=== PATIENT | male | born 1990 | race Caucasian/White ===

== ENCOUNTER 2017-11-05 10:57 | Emergency (ER) | payer MEDICAID, OTHER ==
[~2017-11-05] VITALS: Ht 170.2 cm; Wt 60.0 kg
[~2017-11-05 10:57] MED LIST: ALPR-623 PO; DEXT30TA10 PO
[2017-11-05 10:59] VITALS: BP 119/60
== END 2017-11-05 13:02 | disposition home or self-care (01) ==
LOC: ER 10:58
DX: R07.9 Chest pain, unspecified (principal); R20.2 Paresthesia of skin; F17.200 Nicotine dependence, unspecified, uncomplicated; Z91.010 Allergy to peanuts; Z79.899 Other long term (current) drug therapy
CPT/HCPCS: 93005; 99283

== ENCOUNTER 2020-11-21 17:22 | Emergency (ER) | payer MEDICAID ==
[~2020-11-21] VITALS: Ht 170.2 cm; Wt 62.2 kg
[~2020-11-21 17:22] MED LIST changes: -AMPH30CA3 PO; -AMPH30TA3 PO; -DEXT30CA6 PO; -ESCI5TAB PO; -LORA-269 PO; -ZOLP5TAB2 PO
--- NOTE | 2020-11-21 19:25 | NUR ---
PT TRANSFERRED TO ER HOLD AT THIS TIME. PT IS COMFORTABLE IN BED AFTER TRANSFERRING INTO SCRUBS. PT IS TALKATIVE AND COMPLIANT AT THIS TIME. PT STATES THEY ARE VERY STRESSED AND ANXIOUS LATELY, FEELING LOST, AND IS SEEKING HELP AT THIS TIME TO HELP "FIGURE THINGS OUT BECAUSE NOTHING MAKES SENSE." PT BELONGINGS SHEET SIGNED AND REVIEWED WITH PT AND CIVIL DRAFTING TECHNICIAN ZAIDA AT THIS TIME.
[2020-11-21 19:44] LABS: BASOPHILS # (AUTO) 0.1 X10'3 (0-0.2); BASOPHILS % (AUTO) 0.6 % (0-1); EOSINOPHILS # (AUTO) 0.1 X10'3 (0-0.9); EOSINOPHILS % (AUTO) 1.7 % (0-6); HEMATOCRIT 41.6 % (42.0-52.0); HEMOGLOBIN 14.4 g/dl (14.0-17.9); LYMPHOCYTES # (AUTO) 2.1 X10'3 (1.1-4.8); LYMPHOCYTES % (AUTO) 24.5 % (21-51); MEAN CORPUSCULAR HEMOGLOBIN 29.5 PG (27.0-31.0); MEAN CORPUSCULAR HGB CONC 34.5 g/dL (33.0-36.5); MEAN CORPUSCULAR VOLUME 85.4 FL (78-98); MEAN PLATELET VOLUME 6.7 FL (7.4-10.4); MONOCYTES # (AUTO) 0.9 X10'3 (0-0.9); MONOCYTES % (AUTO) 10.2 % (2-12); NEUTROPHILS # (AUTO) 5.4 X10'3 (1.8-7.7); PLATELET COUNT 292 X10'3 (140-440); RED BLOOD COUNT 4.87 X10'6 (4.70-6.10); WHITE BLOOD COUNT 8.6 X10'3 (4.5-11.0)
[2020-11-21 20:01] LABS: ALANINE AMINOTRANSFERASE 23 U/L (12-78); ALBUMIN 4.2 G/DL (3.4-5.0); ALBUMIN/GLOBULIN RATIO 1.2 (1.1-1.5); ALKALINE PHOSPHATASE 104 IU/L (46-116); ANION GAP 9 (8-16); ASPARTATE AMINO TRANSFERASE 31 U/L (10-37); BILIRUBIN,TOTAL 0.6 MG/DL (0.1-1.0); BLOOD UREA NITROGEN 21 MG/DL (7-18); BUN/CREATININE RATIO 23.9 (5.4-32.0); CALCIUM 8.5 MG/DL (8.5-10.1); CHLORIDE 101 MMOL/L (99-107); CREATININE 0.88 MG/DL (0.60-1.10); GLUCOSE 92 MG/DL (70-104); POTASSIUM 3.8 MMOL/L (3.5-5.1); SODIUM 138 MMOL/L (135-145); TOTAL CARBON DIOXIDE 28.4 MMOL/L (24-32); TOTAL PROTEIN 7.7 G/DL (6.4-8.2); eGFR > 90 ML/MIN
[2020-11-21 20:01] LABS: CLARITY,URINE CLEAR (Clear); COLOR,URINE YELLOW (Yellow); GLUCOSE, URINE NEGATIVE (Neg); KETONES,URINE 40 mg/dl (Neg); LEUKOCYTE ESTERASE ,URINE NEGATIVE (Neg); NITRITES, URINE NEGATIVE (Neg); OCCULT BLOOD,URINE TRACE-INTACT (Neg); PH,URINE 5.5 (4.8-8.0); PROTEIN,URINE NEGATIVE (Neg); UROBILINOGEN,URINE 0.2 E.U/dL (0.2-1.0)
[2020-11-21 20:04] LABS: UA COLLECTION TYPE CLN CATCH MIDSTREAM
[2020-11-21 20:07] LABS: URINE AMPHETAMINE SCREEN POSITIVE (Neg); URINE BARBITUATE SCREEN NEGATIVE (Neg); URINE BENZODIAZEPINES SCREEN NEGATIVE (Neg); URINE CANNABINOID SCREEN POSITIVE (Neg); URINE COCAINE SCREEN NEGATIVE (Neg); URINE METHADONE SCREEN NEGATIVE (Neg); URINE OPIATE SCREEN NEGATIVE (Neg); URINE PHENCYCLIDINE SCREEN NEGATIVE (Neg)
[2020-11-21 20:09] LABS: CAL OXALATE CRYSTALS 1+ /HPF (NEGATIVE)
[2020-11-21 20:10] LABS: BACTERIA,URINE NONE SEEN /HPF (Neg); MUCUS STRANDS MANY /LPF (Neg); RBC,URINE 0-2 /HPF (0-2); SQUAMOUS EPITHELIAL CELL,UR NONE SEEN /LPF (FEW); WBC,URINE 0-4 /HPF (0-4)
[2020-11-21 20:12] LABS: ETHANOL < 0.010 GM/DL (0.0-0.010)
--- NOTE | 2020-11-21 20:50 | NUR ---
PT VERY TALKATIVE WITH STAFF AT THIS TIME. PT CALM AND COOPERATIVE WITH STAFF.
--- NOTE | 2020-11-21 21:53 | NUR ---
PT CONTINUES TO BE VERY TALKATIVE AT THIS TIME TO STAFF, IS CALM, ALERT AND ORIENTED.
[2020-11-21] MEDS ORDERED: AMPH30CA3 PO (22:33)
[2020-11-21] MEDS ORDERED: ESCI5TAB PO (22:33)
[2020-11-21] MEDS ORDERED: ZOLP5TAB2 PO (22:33)
[2020-11-21] MEDS ORDERED: LORA-269 PO (22:33)
[2020-11-21] MEDS ORDERED: DEXT30CA6 PO (22:33)
[2020-11-21] MEDS ORDERED: nicotine 21mg patch - 24 hr TD ONE (22:40)
[2020-11-21] MEDS ORDERED: zolpidem 5mg tablet PO PRN (23:05)
--- NOTE | 2020-11-22 00:05 | NUR ---
PT RESTING IN BED COMFORTABLY AT THIS TIME WITH BED LOCKED IN LOWEST POSITION.
--- NOTE | 2020-11-22 01:05 | NUR ---
PACKET SENT OVER TO [facility] FOR PT EVAL. PT SLEEPING COMFORTABLY IN BED AT THIS TIME.
--- NOTE | 2020-11-22 01:31 | NUR ---
PT CONTINUES TO SLEEP COMFORTABLY IN BED AT THIS TIME.
--- NOTE | 2020-11-22 04:07 | NUR ---
PT RESTING IN BED AFTER USING RESTROOM. PT STATES HE IS IN NO DISTRESS AND IS COMFORTABLE.
--- NOTE | 2020-11-22 05:16 | NUR ---
PT AWOKE AND SPOKE TO RN AND COLLEGE PRESIDENT AT THIS TIME REGARDING BREAKFAST. PT IS CALM AND IN NO DISTRESS THIS MORNING GOING BACK TO BED AT THIS TIME.
--- NOTE | 2020-11-22 05:50 | NUR ---
PT VERY TALKATIVE THIS MORNING WHILE PACING AROUND AND SPEAKING TO NURSING STAFF.
--- NOTE | 2020-11-22 07:17 | NUR ---
PT TOOK NICOTINE PATCH OFF AND REPORTS "IT'S NOT DOING ANYTHING FOR ME". PATCH DISPOSED OF APPROPRIATELY.
--- NOTE | 2020-11-22 07:25 | NUR ---
PACKET FAXED TO [facility]
[2020-11-22] MEDS ORDERED: [UNRECOGNIZED DRUG - OTHER] PO SCH (08:00)
[2020-11-22] MEDS ORDERED: DEXTROAMPHETAMINE PO SCH ×2 (08:00)
[2020-11-22] MEDS ORDERED: AMPHETAMINE PO SCH ×2 (08:00)
[2020-11-22] MEDS ORDERED: AMPHET PO SCH (08:00)
[2020-11-22] MEDS ORDERED: AMPHET ASP PO SCH (08:00)
[2020-11-22] MEDS ORDERED: ESCITALOPRAM OXALATE 5 MG TABLET PO SCH (08:00)
[2020-11-22] MEDS ORDERED: D AMPHET PO SCH (08:00)
[2020-11-22] MEDS ORDERED: LORazepam 1 MG tablet PO SCH (08:00)
[2020-11-22] MEDS ORDERED: AMPH30TA3 PO (08:15)
--- NOTE | 2020-11-22 08:30 | NUR ---
PT DOES NOT HAVE ROUTINE MEDS AND UNABLE TO HAVE FAMILY/FRIENDS ASSIST TO OBTAIN MEDS. PT ROUTINELY TAKES ADDERAL ER 30MG Q AM AND PHARMACY HERE DOES NOT STOCK. SPOKE WITH DR. MIRAMONTES AND RECEIVED VO TO REPLACE ORDER WITH ADDERAL 15MG PO BID WITH TIMES AT 0800 AND 1500
[2020-11-22] MEDS ORDERED: dextroamphetamine/amphetamine 10mg tablet PO SCH (08:45)
[2020-11-22] MEDS ORDERED: dextroamphetamine/amphetamine 5mg tablet PO SCH (08:49)
--- NOTE | 2020-11-22 09:11 | NUR ---
[facility] LIQUID LOADER AT BEDSIDE SPEAKING WITH PT
[2020-11-22] MEDS: dextroamphetamine/amphetamine 5mg tablet PO SCH ×2 (09:37→14:53)
--- NOTE | 2020-11-22 09:47 | NUR ---
[facility] SPOT CLEANER PLACED PT ON [id number]
--- NOTE | 2020-11-22 11:15 | NUR ---
Pt requesting PRN for nicotine craving but asking for something other than patch. Request discussed with Dr. Valverde, receive VO for prn nicotine lozenges
[2020-11-22] MEDS: NICOTINE POLACRILEX 2 MG LOZENGE BC PRN ×2 (12:17→16:37)
--- NOTE | 2020-11-22 12:55 | NUR ---
CHRISTA FROM [facility] CALLED AND WAS GIVEN REPORT ON PT.
--- NOTE | 2020-11-22 15:40 | NUR ---
Received call from [facility] office that pt has been accepted at [facility] to arrive around 1845 tonight.
--- NOTE | 2020-11-22 16:40 | NUR ---
PATIENT WANTS FACUNDO GOYAL TO BE ALLOWED TO VISIT [phone]
[2020-11-22 19:01] VITALS: BP 130/83
== END 2020-11-22 19:04 ==
LOC: ER 17:23
DX: F99 Mental disorder, not otherwise specified (principal); Z20.822 Contact with and (suspected) exposure to COVID-19; F32.9 Major depressive disorder, single episode, unspecified; F41.9 Anxiety disorder, unspecified; Z72.89 Other problems related to lifestyle; Z91.010 Allergy to peanuts; Z79.899 Other long term (current) drug therapy
CPT/HCPCS: 36415; 80053; 80305; 80320; 81001; 84443; 85025; 87426; 99285

== ENCOUNTER → 2020-11-21 | Emergency (ER) | payer MEDICAID ==
[~2020-11-21] MED LIST changes: +AMPH30CA3 PO; +AMPH30TA3 PO; +DEXT30CA6 PO; +ESCI5TAB PO; +LORA-269 PO; +ZOLP5TAB2 PO
== END | disposition left against medical advice (07) ==
LOC: ER 13:39
DX: Z00.8 Encounter for other general examination (principal); Z53.21 Procedure and treatment not carried out due to patient leaving prior to being seen by health care provider

== ENCOUNTER 2021-01-15 21:18 | Emergency (ER) | payer MEDICAID ==
[~2021-01-15] VITALS: Ht 170.2 cm; Wt 65.3 kg
[~2021-01-15 21:18] MED LIST changes: -ALPR-623 PO; +AMPH30TA3 PO; +DEXT30CA6 PO; -DEXT30TA10 PO; +ESCI5TAB PO; +LORA-269 PO; +ZOLP5TAB2 PO
[2021-01-15 22:10] VITALS: BP 129/93
[2021-01-15] MEDS ORDERED: LORazepam 2 mg/ml vial IV ONE (22:55)
[2021-01-15] MEDS ORDERED: ESCITALOPRAM OXALATE 5 MG TABLET PO ONE (22:55)
[2021-01-15] MEDS ORDERED: TETanus/Pertussis (Acell)/Diphther VAC/PF (Tdap-Adult) 0.5ml syringe IMVAC ONE (22:55)
[2021-01-15] MEDS ORDERED: LORazepam 1 MG tablet PO ONE (23:00)
[2021-01-15] MEDS ORDERED: dextroamphetamine/amphetamine 5mg tablet PO ONE (23:00)
--- NOTE | 2021-01-15 23:18 | NUR ---
PA placed 4 james into his cuellar.
== END 2021-01-15 23:19 | disposition home or self-care (01) ==
LOC: ER 21:19
DX: S81.811A Laceration without foreign body, right lower leg, initial encounter (principal); F41.9 Anxiety disorder, unspecified; R45.1 Restlessness and agitation; F41.0 Panic disorder [episodic paroxysmal anxiety]; Z20.3 Contact with and (suspected) exposure to rabies; Z72.89 Other problems related to lifestyle; Z91.010 Allergy to peanuts; Z79.899 Other long term (current) drug therapy; X58.XXXA Exposure to other specified factors, initial encounter; Y93.89 Activity, other specified; Y92.89 Other specified places as the place of occurrence of the external cause; Y99.8 Other external cause status
CPT/HCPCS: 12001; 90471; 90715; 99284

== ENCOUNTER 2021-05-19 19:43 | Emergency (ER) | payer MEDICAID ==
[~2021-05-19] VITALS: Ht 170.2 cm; Wt 65.9 kg
[2021-05-19 19:57] VITALS: BP 128/91
[2021-05-19 20:20] LABS: BASOPHILS # (AUTO) 0.1 X10'3 (0-0.2); EOSINOPHILS # (AUTO) 0.1 X10'3 (0-0.9); EOSINOPHILS % (AUTO) 1.5 % (0-6); HEMATOCRIT 39.6 % (42.0-52.0); HEMOGLOBIN 13.8 g/dl (14.0-17.9); LYMPHOCYTES # (AUTO) 1.9 X10'3 (1.1-4.8); LYMPHOCYTES % (AUTO) 33.1 % (21-51); MEAN CORPUSCULAR HEMOGLOBIN 30.5 PG (27.0-31.0); MEAN CORPUSCULAR HGB CONC 34.8 g/dL (33.0-36.5); MEAN CORPUSCULAR VOLUME 87.6 FL (78-98); MEAN PLATELET VOLUME 6.4 FL (7.4-10.4); MONOCYTES # (AUTO) 0.4 X10'3 (0-0.9); MONOCYTES % (AUTO) 7.8 % (2-12); NEUTROPHILS # (AUTO) 3.3 X10'3 (1.8-7.7); NEUTROPHILS % (AUTO) 56.6 % (42-75); PLATELET COUNT 346 X10'3 (140-440); RED BLOOD COUNT 4.52 X10'6 (4.70-6.10); RED CELL DISTRIBUTION WIDTH 12.3 % (11.5-14.5); WHITE BLOOD COUNT 5.8 X10'3 (4.5-11.0)
[2021-05-19 20:32] LABS: ALANINE AMINOTRANSFERASE 21 U/L (12-78); ALBUMIN 4.2 G/DL (3.4-5.0); ALBUMIN/GLOBULIN RATIO 1.2 (1.1-1.5); ALKALINE PHOSPHATASE 103 IU/L (46-116); ANION GAP 7 (8-16); ASPARTATE AMINO TRANSFERASE 15 U/L (10-37); BILIRUBIN,TOTAL 0.4 MG/DL (0.1-1.0); BLOOD UREA NITROGEN 12 MG/DL (7-18); BUN/CREATININE RATIO 12.8 (5.4-32.0); CALCIUM 8.9 MG/DL (8.5-10.1); CHLORIDE 105 MMOL/L (99-107); CREATININE 0.94 MG/DL (0.60-1.10); GLUCOSE 91 MG/DL (70-104); POTASSIUM 3.8 MMOL/L (3.5-5.1); SODIUM 142 MMOL/L (135-145); TOTAL CARBON DIOXIDE 30.1 MMOL/L (24-32); TOTAL PROTEIN 7.7 G/DL (6.4-8.2); eGFR > 90 ML/MIN
[2021-05-19 20:40] LABS: ETHANOL < 0.010 GM/DL (0.0-0.010)
--- NOTE | 2021-05-19 21:37 | NUR ---
PT DOES NOT WANT TO STAY. STATES HE NEEDS TO GO BACK TO HIS FRIEND'S HOUSE. STATES HE HAS THERAPY APPT ON AND WILL TAKE MEDS AND NOT HURT HIMSELF.
--- NOTE | 2021-05-19 21:39 | NUR ---
PT WILL NOT STATE HOW HE PLANS TO HURT SELF. PT NOT GIVING ANY INFORMATION. STATES HE DOESN'T WANT TO TALK.
--- NOTE | 2021-05-19 21:45 | NUR ---
PT DECIDED NOT TO [facility]. PT CLEANING UP IN BATHROOM.
[2021-05-19 22:01] LABS: URINE AMPHETAMINE SCREEN POSITIVE (Neg); URINE BARBITUATE SCREEN NEGATIVE (Neg); URINE BENZODIAZEPINES SCREEN NEGATIVE (Neg); URINE CANNABINOID SCREEN POSITIVE (Neg); URINE COCAINE SCREEN NEGATIVE (Neg); URINE METHADONE SCREEN NEGATIVE (Neg); URINE OPIATE SCREEN NEGATIVE (Neg); URINE PHENCYCLIDINE SCREEN NEGATIVE (Neg)
[2021-05-19 22:08] LABS: CLARITY,URINE CLEAR (Clear); COLOR,URINE YELLOW (Yellow); UA COLLECTION TYPE CLN CATCH MIDSTREAM
[2021-05-19 22:09] LABS: GLUCOSE, URINE NEGATIVE (Neg); KETONES,URINE NEGATIVE (Neg); LEUKOCYTE ESTERASE ,URINE NEGATIVE (Neg); NITRITES, URINE NEGATIVE (Neg); OCCULT BLOOD,URINE NEGATIVE (Neg); PH,URINE 6.5 (4.8-8.0); PROTEIN,URINE NEGATIVE (Neg); UROBILINOGEN,URINE 0.2 E.U/dL (0.2-1.0)
[2021-05-19] MEDS ORDERED: LORazepam 1 MG tablet PO ONE (22:25)
[2021-05-19] MEDS ORDERED: NICOTINE POLACRILEX 2 MG LOZENGE BC PRN (22:25)
--- NOTE | 2021-05-20 00:45 | NUR ---
PRESLEY FRANCIS. DG COM [employer] CALLED AND NOTIFIED.
== END 2021-05-20 00:45 | disposition left against medical advice (07) ==
LOC: ER 19:44
DX: R45.851 Suicidal ideations (principal); F32.9 Major depressive disorder, single episode, unspecified; F41.9 Anxiety disorder, unspecified; Z72.89 Other problems related to lifestyle; Z91.010 Allergy to peanuts; Z79.899 Other long term (current) drug therapy
CPT/HCPCS: 36415; 80053; 80305; 80320; 81003; 84443; 85025; 99285

== ENCOUNTER 2021-05-20 03:14 | Emergency (ER) | payer MEDICAID ==
[~2021-05-20] VITALS: Ht 170.2 cm; Wt 65.9 kg
[2021-05-20 04:08] LABS: BASOPHILS % (AUTO) 0.8 % (0-1); EOSINOPHILS # (AUTO) 0.3 X10'3 (0-0.9); EOSINOPHILS % (AUTO) 4.3 % (0-6); HEMOGLOBIN 13.5 g/dl (14.0-17.9); LYMPHOCYTES # (AUTO) 2.3 X10'3 (1.1-4.8); LYMPHOCYTES % (AUTO) 38.6 % (21-51); MEAN CORPUSCULAR HEMOGLOBIN 30.7 PG (27.0-31.0); MEAN CORPUSCULAR HGB CONC 33.7 g/dL (33.0-36.5); MEAN CORPUSCULAR VOLUME 91.1 FL (78-98); MEAN PLATELET VOLUME 7.2 FL (7.4-10.4); MONOCYTES # (AUTO) 0.6 X10'3 (0-0.9); MONOCYTES % (AUTO) 9.9 % (2-12); NEUTROPHILS # (AUTO) 2.8 X10'3 (1.8-7.7); NEUTROPHILS % (AUTO) 46.4 % (42-75); PLATELET COUNT 136 X10'3 (140-440); RED BLOOD COUNT 4.39 X10'6 (4.70-6.10); RED CELL DISTRIBUTION WIDTH 12.4 % (11.5-14.5); WHITE BLOOD COUNT 5.9 X10'3 (4.5-11.0)
[2021-05-20 04:11] LABS: ALANINE AMINOTRANSFERASE 18 U/L (12-78); ALBUMIN 3.7 G/DL (3.4-5.0); ALBUMIN/GLOBULIN RATIO 1.1 (1.1-1.5); ALKALINE PHOSPHATASE 101 IU/L (46-116); ANION GAP 9 (8-16); ASPARTATE AMINO TRANSFERASE 16 U/L (10-37); BILIRUBIN,TOTAL 0.3 MG/DL (0.1-1.0); BLOOD UREA NITROGEN 14 MG/DL (7-18); BUN/CREATININE RATIO 16.3 (5.4-32.0); CALCIUM 8.7 MG/DL (8.5-10.1); CHLORIDE 107 MMOL/L (99-107); CREATININE 0.86 MG/DL (0.60-1.10); GLUCOSE 119 MG/DL (70-104); SODIUM 142 MMOL/L (135-145); TOTAL CARBON DIOXIDE 26.1 MMOL/L (24-32); eGFR > 90 ML/MIN
[2021-05-20 04:12] LABS: POTASSIUM 3.9 MMOL/L (3.5-5.1)
[2021-05-20 04:13] LABS: ETHANOL < 0.010 GM/DL (0.0-0.010)
--- NOTE | 2021-05-20 08:27 | NUR ---
PACKET FAXED TO [facility]
--- NOTE | 2021-05-20 09:35 | NUR ---
Received report and Pt in bed sleeping w/o distress.
--- NOTE | 2021-05-20 11:15 | NUR ---
Pt awake in bed. Pt talked with [facility] clinician and remains resting in bed. Pt appears depressed and states he has no needs at this time.
[2021-05-20] MEDS ORDERED: zolpidem 5mg tablet PO PRN (12:25)
[2021-05-20] MEDS ORDERED: dextroamphetamine/amphetamine 5mg tablet PO SCH (13:00)
[2021-05-20 13:48] LABS: URINE AMPHETAMINE SCREEN POSITIVE (Neg); URINE BARBITUATE SCREEN NEGATIVE (Neg); URINE BENZODIAZEPINES SCREEN NEGATIVE (Neg); URINE CANNABINOID SCREEN POSITIVE (Neg); URINE COCAINE SCREEN NEGATIVE (Neg); URINE METHADONE SCREEN NEGATIVE (Neg); URINE OPIATE SCREEN NEGATIVE (Neg); URINE PHENCYCLIDINE SCREEN NEGATIVE (Neg)
--- NOTE | 2021-05-20 14:17 | NUR ---
Pt in bed and tearful. Pt spoke again with [facility] and the 5150 hold was upheld and [facility] will be looking for placement.
[2021-05-20] MEDS ORDERED: NICOTINE POLACRILEX 2 MG LOZENGE BC PRN (14:45)
--- NOTE | 2021-05-20 19:00 | NUR ---
One to one with the patient. When asked how his mood was he stated "apprehensive" and "I'm always depressed" He denies visual hallucinations but stated he has been getting messages from the TV at times. He denies suicidal thoughts currently. His replies were delayed. His affect was flat. Minimal eye contact and verbal replies were minimal.
[2021-05-20 20:21] VITALS: BP 130/86
[2021-05-21] MEDS ORDERED: LORazepam 1 MG tablet PO SCH (08:00)
[2021-05-21] MEDS ORDERED: ESCITALOPRAM OXALATE 5 MG TABLET PO SCH (08:00)
== END 2021-05-20 20:29 ==
LOC: ER 03:14
DX: R45.851 Suicidal ideations (principal); Z20.822 Contact with and (suspected) exposure to COVID-19; F41.9 Anxiety disorder, unspecified; Z72.89 Other problems related to lifestyle; Z91.010 Allergy to peanuts; Z79.899 Other long term (current) drug therapy
CPT/HCPCS: 36415; 80053; 80305; 80320; 85025; 87635; 99285; C9803

== ENCOUNTER 2021-11-05 20:11 | Emergency (ER) | payer MEDICAID ==
[~2021-11-05] VITALS: Ht 170.2 cm; Wt 77.0 kg
[2021-11-05 21:32] LABS: BASOPHILS % (AUTO) 0.4 % (0-1); EOSINOPHILS # (AUTO) 0.4 X10'3 (0-0.9); EOSINOPHILS % (AUTO) 3.5 % (0-6); HEMOGLOBIN 14.4 g/dl (12.0-16.0); LYMPHOCYTES # (AUTO) 2.3 X10'3 (1.1-4.8); LYMPHOCYTES % (AUTO) 20.1 % (21-51); MEAN CORPUSCULAR HEMOGLOBIN 30.6 PG (27.0-31.0); MEAN CORPUSCULAR HGB CONC 35.2 g/dL (33.0-36.5); MEAN PLATELET VOLUME 6.6 FL (7.4-10.4); MONOCYTES # (AUTO) 1.2 X10'3 (0-0.9); MONOCYTES % (AUTO) 10.2 % (2-12); NEUTROPHILS # (AUTO) 7.6 X10'3 (1.8-7.7); NEUTROPHILS % (AUTO) 65.8 % (42-75); PLATELET COUNT 321 X10'3 (140-440); RED BLOOD COUNT 4.71 X10'6 (4.20-5.60); RED CELL DISTRIBUTION WIDTH 13.1 % (11.5-14.5); WHITE BLOOD COUNT 11.6 X10'3 (4.5-11.0)
[2021-11-05 21:42] LABS: ALANINE AMINOTRANSFERASE 39 U/L (12-78); ALBUMIN/GLOBULIN RATIO 1.1 (1.1-1.5); ALKALINE PHOSPHATASE 111 IU/L (46-116); ANION GAP 9 (8-16); ASPARTATE AMINO TRANSFERASE 17 U/L (10-37); BILIRUBIN,TOTAL 0.3 MG/DL (0.1-1.0); BLOOD UREA NITROGEN 16 MG/DL (7-18); BUN/CREATININE RATIO 22.2 (6.6-38.0); CALCIUM 8.7 MG/DL (8.5-10.1); CHLORIDE 103 MMOL/L (99-107); CREATININE 0.72 MG/DL (0.40-0.90); GLUCOSE 83 MG/DL (70-104); POTASSIUM 4.1 MMOL/L (3.5-5.1); SODIUM 140 MMOL/L (135-145); TOTAL CARBON DIOXIDE 27.8 MMOL/L (24-32); TOTAL PROTEIN 7.7 G/DL (6.4-8.2); eGFR > 90 ML/MIN
[2021-11-06 00:48] LABS: D-DIMER < 0.19 MG/L FEU (0-0.50)
[2021-11-06 01:35] VITALS: BP 124/82
== END 2021-11-06 01:37 | disposition home or self-care (01) ==
LOC: EDSEX 20:11 → ER 20:11
DX: M54.10 Radiculopathy, site unspecified (principal); R07.9 Chest pain, unspecified; F41.9 Anxiety disorder, unspecified; Z91.010 Allergy to peanuts; Z79.899 Other long term (current) drug therapy
CPT/HCPCS: 36415; 71045; 80053; 84484; 85025; 85379; 93005; 99285

== ENCOUNTER 2022-10-07 07:49 | Emergency (ER) | payer MEDICAID | END 2022-10-07 10:39 | disposition left against medical advice (07) | LOC: ER 07:50 | DX: F29 Unspecified psychosis not due to a substance or known physiological condition (principal); Z53.21 Procedure and treatment not carried out due to patient leaving prior to being seen by health care provider ==

== ENCOUNTER 2022-10-13 15:25 | Emergency (ER) | payer MEDICAID ==
[~2022-10-13] VITALS: Ht 172.7 cm; Wt 62.7 kg
[2022-10-13 16:18] LABS: BASOPHILS % (AUTO) 0.4 % (0-1); EOSINOPHILS # (AUTO) 0.1 X10'3 (0-0.9); EOSINOPHILS % (AUTO) 0.7 % (0-6); HEMATOCRIT 37.1 % (35.0-45.0); HEMOGLOBIN 12.6 g/dl (12.0-16.0); LYMPHOCYTES # (AUTO) 2.1 X10'3 (1.1-4.8); LYMPHOCYTES % (AUTO) 18.8 % (21-51); MEAN CORPUSCULAR HEMOGLOBIN 29.5 PG (27.0-31.0); MEAN CORPUSCULAR VOLUME 86.8 FL (78-98); MEAN PLATELET VOLUME 6.7 FL (7.4-10.4); MONOCYTES # (AUTO) 1.3 X10'3 (0-0.9); MONOCYTES % (AUTO) 11.1 % (2-12); NEUTROPHILS # (AUTO) 7.8 X10'3 (1.8-7.7); PLATELET COUNT 382 X10'3 (140-440); RED BLOOD COUNT 4.28 X10'6 (4.20-5.60); RED CELL DISTRIBUTION WIDTH 13.4 % (11.5-14.5); WHITE BLOOD COUNT 11.3 X10'3 (4.5-11.0)
[2022-10-13 16:35] LABS: ALANINE AMINOTRANSFERASE 19 U/L (12-78); ALBUMIN 3.9 G/DL (3.4-5.0); ALKALINE PHOSPHATASE 128 IU/L (46-116); ANION GAP 7 (8-16); ASPARTATE AMINO TRANSFERASE 31 U/L (10-37); BILIRUBIN,TOTAL 0.3 MG/DL (0.1-1.0); BLOOD UREA NITROGEN 16 MG/DL (7-18); BUN/CREATININE RATIO 21.3 (10.0-20.0); CALCIUM 9.1 MG/DL (8.5-10.1); CHLORIDE 102 MMOL/L (99-107); CREATININE 0.75 MG/DL (0.40-0.90); GLUCOSE 112 MG/DL (70-104); POTASSIUM 3.9 MMOL/L (3.5-5.1); SODIUM 139 MMOL/L (135-145); TOTAL CARBON DIOXIDE 30.5 MMOL/L (24-32); TOTAL PROTEIN 7.7 G/DL (6.4-8.2); eGFR > 90 ML/MIN
[2022-10-13 16:47] LABS: ETHANOL < 0.010 GM/DL (0.0-0.010)
[2022-10-13 17:08] LABS: CLARITY,URINE SLIGHTLY CLOUDY (Clear); COLOR,URINE YELLOW (Yellow); GLUCOSE, URINE NEGATIVE (Neg); KETONES,URINE NEGATIVE (Neg); LEUKOCYTE ESTERASE ,URINE NEGATIVE (Neg); NITRITES, URINE NEGATIVE (Neg); OCCULT BLOOD,URINE NEGATIVE (Neg); PROTEIN,URINE NEGATIVE (Neg); UROBILINOGEN,URINE 0.2 E.U/dL (0.2-1.0)
--- NOTE | 2022-10-13 17:20 | NUR ---
Pt. ambulated over from the main ER accompanied by Mesfin. He is in bed standing up and making bizarre movements, requiring redirection from staff.
[2022-10-13 17:23] LABS: URINE AMPHETAMINE SCREEN NEGATIVE (Neg); URINE BARBITUATE SCREEN NEGATIVE (Neg); URINE BENZODIAZEPINES SCREEN NEGATIVE (Neg); URINE METHADONE SCREEN NEGATIVE (Neg)
[2022-10-13 17:24] LABS: URINE CANNABINOID SCREEN NEGATIVE (Neg); URINE COCAINE SCREEN NEGATIVE (Neg); URINE OPIATE SCREEN NEGATIVE (Neg); URINE PHENCYCLIDINE SCREEN NEGATIVE (Neg)
[2022-10-13] MEDS ORDERED: OLANZapine 5mg rapidly disint. tablet PO ONE (17:30)
[2022-10-13] MEDS ORDERED: LORazepam 1 MG tablet PO ONE (17:30)
[2022-10-13 17:35] LABS: UA COLLECTION TYPE VOIDED
[2022-10-13 17:40] LABS: BACTERIA,URINE NONE SEEN /HPF (Neg); MUCUS STRANDS FEW /LPF (Neg); RBC,URINE 0-2 /HPF (0-2); SQUAMOUS EPITHELIAL CELL,UR FEW /LPF (FEW); WBC,URINE 0-4 /HPF (0-4)
--- NOTE | 2022-10-13 17:40 | NUR ---
Pt. continues to act very impulsively and will jump up out of bed at times and head for the front exit. Pt. also exhibits actively responding to internal stimuli AEB talking aloud. Received orders for Ativan 1mg and Zyprexa 10mg, pt. was cooperative with taking medications and will continue to monitor closely.
[2022-10-13] MEDS ORDERED: NO HOME MEDS (17:50)
[2022-10-13] MEDS ORDERED: AMPH15TA2 PO (18:13)
[2022-10-13] MEDS ORDERED: ESCI5TAB PO (18:13)
[2022-10-13] MEDS ORDERED: ZOLP5TAB8 PO (18:13)
--- NOTE | 2022-10-13 19:28 | NUR ---
The patient was limitedly cooperative and gamey when answering assessment questions. He does state that he is suicidal. When asked why he was here he stated "some bullshit" He is currently resting on his bed.
[2022-10-13] MEDS: OLANZapine 5mg rapidly disint. tablet PO SCH (20:17)
[2022-10-13] MEDS ORDERED: zolpidem 5mg tablet PO SCH (21:00)
--- NOTE | 2022-10-13 21:25 | NUR ---
The patient appears to be sleeping
--- NOTE | 2022-10-13 22:01 | NUR ---
PACKET SENT TO [facility]
--- NOTE | 2022-10-13 23:41 | NUR ---
The patient appears to be sleeping
--- NOTE | 2022-10-14 00:59 | NUR ---
The patient appears to be sleeping
--- NOTE | 2022-10-14 02:59 | NUR ---
The patient appears to be sleeping
--- NOTE | 2022-10-14 05:00 | NUR ---
The patient appears to be sleeping
--- NOTE | 2022-10-14 06:38 | NUR ---
Assumed care of patient that is walking the unit having a conversation with himself.
[2022-10-14] MEDS ORDERED: dextroamphetamine/amphetamine 10mg tablet PO SCH (08:00)
[2022-10-14] MEDS ORDERED: ESCITALOPRAM OXALATE 5 MG TABLET PO SCH (08:00)
[2022-10-14] MEDS ORDERED: dextroamphetamine/amphetamine 5mg tablet PO SCH (08:40)
--- NOTE | 2022-10-14 08:51 | NUR ---
Patient continues to be intrusive with staff, and is hard to re-direct.
[2022-10-14] MEDS: OLANZapine 5mg rapidly disint. tablet PO SCH ×2 (09:06→19:12)
--- NOTE | 2022-10-14 10:03 | NUR ---
Patient is obnoxious, wandering around bothering his peers as they try to sleep.
--- NOTE | 2022-10-14 12:08 | NUR ---
Patient sitting on his bed eating his lunch.
--- NOTE | 2022-10-14 12:10 | NUR ---
Patient in his room finishing lunch decided to elope from the unit.
--- NOTE | 2022-10-14 12:45 | NUR ---
Patient brought back by security.
--- NOTE | 2022-10-14 13:05 | NUR ---
Patient has been moved to room 27 due to elopement. He is now farther bhupinder the doors.
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
--- NOTE | 2022-10-14 14:10 | NUR ---
Received call from [facility] for nurse to nurse. They requested a TSH be done.
--- NOTE | 2022-10-14 16:41 | NUR ---
Lab here to draw blood for TSH. TSH level needed for transfer to [facility].
--- NOTE | 2022-10-14 17:36 | NUR ---
TSH sent to [facility].
[2022-10-14 18:10] VITALS: BP 122/85
--- NOTE | 2022-10-14 19:25 | NUR ---
Pt has been accepted to [facility], pt hyperverbal and 'busy" cleaning.
--- NOTE | 2022-10-14 20:28 | NUR ---
[facility]/security here to escort patient out. All belongings are with patient.
== END 2022-10-14 20:30 ==
LOC: ER 15:26
DX: F32.9 Major depressive disorder, single episode, unspecified (principal); R45.851 Suicidal ideations; Z20.822 Contact with and (suspected) exposure to COVID-19; F41.9 Anxiety disorder, unspecified; Z72.89 Other problems related to lifestyle; Z91.010 Allergy to peanuts; Z79.899 Other long term (current) drug therapy
CPT/HCPCS: 36415; 80053; 80305; 80320; 81001; 84443; 85025; 87811; 99285

== ENCOUNTER 2022-10-28 13:37 | Emergency (ER) | payer MEDICAID ==
[~2022-10-28] VITALS: Ht 170.2 cm; Wt 65.4 kg
[~2022-10-28 13:37] MED LIST changes: +AMPH15TA2 PO; -AMPH30TA3 PO; -DEXT30CA6 PO; -LORA-269 PO; -ZOLP5TAB2 PO; +ZOLP5TAB8 PO
[2022-10-28 13:39] VITALS: BP 112/86
--- NOTE | 2022-10-28 14:09 | NUR ---
SECURITY SECURED THE PT'S BELONGINGS IN ROOM 27
--- NOTE | 2022-10-28 15:00 | NUR ---
PROVIDER COORDINATED WITH [facility] TO SEND PT THERE DIRECTLY FOR AN EVALUATION, TAXI SERVICE WAS SECURED FOR PT, AWAITING TAXI.
--- NOTE | 2022-10-28 15:53 | NUR ---
[facility] WAS REFUSED BY PT AT THIS TIME, NO LONGER WANTS ANY SERVICES OR ASSISTANCE. STATED WILL GO AHEAD AND WALK. CRN WAS MADE AWARE.
== END 2022-10-28 15:55 | disposition home or self-care (01) ==
LOC: ER 13:37
DX: F20.9 Schizophrenia, unspecified (principal); F31.9 Bipolar disorder, unspecified; Z91.010 Allergy to peanuts; Z79.899 Other long term (current) drug therapy
CPT/HCPCS: 99281

== ENCOUNTER 2022-10-31 12:58 | Emergency (ER) | payer MEDICAID ==
[~2022-10-31] VITALS: Ht 170.2 cm; Wt 59.1 kg
[2022-10-31] MEDS ORDERED: OLANZapine 2.5MG tablet PO ONE (13:55)
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
[2022-10-31 15:55] LABS: BASOPHILS # (AUTO) 0.1 X10'3 (0-0.2); BASOPHILS % (AUTO) 0.8 % (0-1); EOSINOPHILS # (AUTO) 0.3 X10'3 (0-0.9); EOSINOPHILS % (AUTO) 5.3 % (0-6); HEMATOCRIT 33.2 % (35.0-45.0); HEMOGLOBIN 11.1 g/dl (12.0-16.0); LYMPHOCYTES # (AUTO) 2.3 X10'3 (1.1-4.8); LYMPHOCYTES % (AUTO) 35.8 % (21-51); MEAN CORPUSCULAR HEMOGLOBIN 29.3 PG (27.0-31.0); MEAN CORPUSCULAR HGB CONC 33.4 g/dL (33.0-36.5); MEAN CORPUSCULAR VOLUME 87.7 FL (78-98); MEAN PLATELET VOLUME 6.4 FL (7.4-10.4); MONOCYTES # (AUTO) 0.9 X10'3 (0-0.9); MONOCYTES % (AUTO) 13.8 % (2-12); NEUTROPHILS # (AUTO) 2.9 X10'3 (1.8-7.7); NEUTROPHILS % (AUTO) 44.3 % (42-75); PLATELET COUNT 397 X10'3 (140-440); RED BLOOD COUNT 3.79 X10'6 (4.20-5.60); RED CELL DISTRIBUTION WIDTH 13.3 % (11.5-14.5); WHITE BLOOD COUNT 6.5 X10'3 (4.5-11.0)
[2022-10-31 15:55] LABS: CLARITY,URINE CLEAR (Clear); COLOR,URINE YELLOW (Yellow); GLUCOSE, URINE NEGATIVE (Neg); KETONES,URINE NEGATIVE (Neg); LEUKOCYTE ESTERASE ,URINE NEGATIVE (Neg); NITRITES, URINE NEGATIVE (Neg); OCCULT BLOOD,URINE NEGATIVE (Neg); PROTEIN,URINE NEGATIVE (Neg); UA COLLECTION TYPE VOIDED; UROBILINOGEN,URINE 0.2 E.U/dL (0.2-1.0)
[2022-10-31 15:59] LABS: URINE AMPHETAMINE SCREEN NEGATIVE (Neg); URINE BARBITUATE SCREEN NEGATIVE (Neg); URINE BENZODIAZEPINES SCREEN NEGATIVE (Neg); URINE CANNABINOID SCREEN NEGATIVE (Neg); URINE COCAINE SCREEN NEGATIVE (Neg); URINE METHADONE SCREEN NEGATIVE (Neg); URINE OPIATE SCREEN NEGATIVE (Neg); URINE PHENCYCLIDINE SCREEN NEGATIVE (Neg)
[2022-10-31 16:04] LABS: ALANINE AMINOTRANSFERASE 29 U/L (12-78); ALBUMIN 3.7 G/DL (3.4-5.0); ALKALINE PHOSPHATASE 122 IU/L (46-116); ANION GAP 6 (8-16); ASPARTATE AMINO TRANSFERASE 31 U/L (10-37); BILIRUBIN,TOTAL 0.3 MG/DL (0.1-1.0); BLOOD UREA NITROGEN 22 MG/DL (7-18); BUN/CREATININE RATIO 32.4 (10.0-20.0); CALCIUM 8.8 MG/DL (8.5-10.1); CHLORIDE 104 MMOL/L (99-107); CREATININE 0.68 MG/DL (0.40-0.90); ETHANOL < 0.010 GM/DL (0.0-0.010); GLUCOSE 118 MG/DL (70-104); POTASSIUM 4.6 MMOL/L (3.5-5.1); SODIUM 140 MMOL/L (135-145); TOTAL CARBON DIOXIDE 30.4 MMOL/L (24-32); TOTAL PROTEIN 7.4 G/DL (6.4-8.2); eGFR > 90 ML/MIN
--- NOTE | 2022-10-31 16:06 | NUR ---
Pt was able to answer admit questions appropriately, has a tendency to follow a ra\\b Addendum: 10/31/22 at 1607 by TIANNA Pt reports SI "everyday of my life." "I feel like I'm damage goods." 'Ya know I had a rough childhood..." "In my perspective, but my perspective is different then others. Pt rambles. When asked about A/VH pt began talking in third person saying "we." "We know what our body needs." "We know what's in my head." Pt doesn't refer to "we" as voices, "its just in my head." Pt reports his psyche diagnosis is DID (dissociative identity disorder.)
--- NOTE | 2022-10-31 16:17 | NUR ---
Pt resting comfortably on right side, no restless movements. Pt did not need additional medication.
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
--- NOTE | 2022-10-31 17:43 | NUR ---
Pt resting comfortably on left side, rr even and unlabored.
--- NOTE | 2022-10-31 18:52 | NUR ---
Assumed care at 1830. Patient expresses multiple personalities in head. Identifies as a woman, currently is Samantha. Reports over 8 names that live in her head. Delmy Palomares, Sameera, Garret, Loretta, and Danika are that this song writer can recall. Denies having thoughts currently of SI and states that SI flood her mind constantly. Repeating "rufino morti, rufino morti, rufino morti," and is pacing with occational body motion expressing as if she was shooting a basketball, noted patient jumping in the air as to shoot a basketball. Disorganized thoughts and looking around at ceiling and in the air as if something was there. Continually speaking to herself and mumbling under breath. Seems to be responding to internal stimuli. Noted patient to correct herself when responding and says, "she thinks, I mean WE think, " referring to other personalities.
--- NOTE | 2022-10-31 19:40 | NUR ---
Patient requested something for anxiety and sleep. Received orders from Dr. Harris for Ativan 1 mg po PRN and Benadryl 50 mg po at HS.
--- NOTE | 2022-10-31 21:00 | NUR ---
Patient fell asleep, held HS meds for now.
--- NOTE | 2022-10-31 23:06 | NUR ---
Patient appears to be sleeping comfortably, no s/sx of distress noted. RR even/nonlabored.Will continue to monitor.
[2022-10-31] MEDS: LORazepam 1 MG tablet PO PRN (23:20)
[2022-10-31] MEDS: diphenhydrAMINE 25mg capsule PO SCH (23:20)
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
--- NOTE | 2022-11-01 00:58 | NUR ---
Patient appears to be sleeping comfortably on right side, RR even/nonlabored. No needs noted at this time. Will continue to montior
--- NOTE | 2022-11-01 03:02 | NUR ---
Patient awoke briefly to change positions. Mumbled words under his breath for a few minutes and then fell back asleep. Currently patient is sitting up and sleeping on left side. Will continue to monitor.
--- NOTE | 2022-11-01 03:07 | NUR ---
Awoke to ask for coffee and snack. Security sunni Copeland came in and began to have conversation with patient. Will continue to monitor.
--- NOTE | 2022-11-01 03:30 | NUR ---
Walked with patient as they paced the unit. Offered a warm blanket to help relax and get comfortable in bed. Tucked him in and patient went to sleep.
--- NOTE | 2022-11-01 05:12 | NUR ---
Patient sleeping in bed at this time. Appears to be comfortable. Respirations even/nonlabored. Will continue to monitor.
--- NOTE | 2022-11-01 07:03 | NUR ---
Patient pacing unit talking to himself. Pt had to be reminded to keep his voice down as he was slowly escalating. Pt presents with rapid speech and flight of ideas. Pt talking about being in a gang "they don't want to do no gang bang thing," then to "the kids are all fine, because that's what gang members do." When asked about SI "ya of course I do." "I want to blow my head off with glock 27." Pt denies A/VH, but is having a conversation with himself states "the female inside of me is frustrated with this whole medical situation. Pt doesn't have access to a gun.
[2022-11-01] MEDS: olanzapine 10mg tablet PO SCH (07:12)
--- NOTE | 2022-11-01 07:28 | NUR ---
Administered pt's morning Zyprexa 10mg will continue to monitor.
[2022-11-01] MEDS: LORazepam 1 MG tablet PO PRN ×2 (08:02→20:09)
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
--- NOTE | 2022-11-01 09:00 | NUR ---
Pt resting comfortably on left side, rr even and unlabored.
--- NOTE | 2022-11-01 10:11 | NUR ---
Pt woke requested a cup of coffee and some crackers, which were provided.
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
[2022-11-01] MEDS ORDERED: diphenhydrAMINE 25mg capsule PO ONE (11:15)
[2022-11-01] MEDS ORDERED: quetiapine 100mg tablet PO ONE (11:15)
--- NOTE | 2022-11-01 11:25 | NUR ---
Pt given PO Benadryl 50mg and Seroquel 100mg. Pt takes medication without issue. Pt leaving his drinking cups and pitchers in high use areas on unit, was asked to keep these items in his area. Pt educated on infection control.
--- NOTE | 2022-11-01 11:42 | NUR ---
Pt continues to pace floor, conversating with self. Random, nonsensical conversation, possibly attention seeking. Pt is gassy c/o constipation, prune juice given earlier.
--- NOTE | 2022-11-01 11:47 | NUR ---
Pt in bathroom.
--- NOTE | 2022-11-01 12:43 | NUR ---
Pt resting comfortably with blankets pulled over his head, Respirations even and unlabored, visible over covers.
--- NOTE | 2022-11-01 13:39 | NUR ---
PRELIMINARY NURSE TO NURSE WITH KATHERIN AT [facility].
--- NOTE | 2022-11-01 13:53 | NUR ---
Spoke with Shameka at [facility] office - pt is accepted at [facility]] pending negative covid result. [facility] requires Covid within 24 hours.
--- NOTE | 2022-11-01 16:08 | NUR ---
Pt woke ate snack then fell back to sleep, rr even and unlabored.
--- NOTE | 2022-11-01 16:54 | NUR ---
FINAL NURSE TO NURSE COMPLETED WITH KD AT [facility]. PLEASE CALL [phone] WHEN ETA IS MADE AVAILABLE.
--- NOTE | 2022-11-01 16:57 | NUR ---
Pt reports large BM earlier today.
[2022-11-01] MEDS: simethicone 125mg capsule PO SCH ×2 (17:11→20:08)
--- NOTE | 2022-11-01 17:12 | NUR ---
Pt continues to be gassy and required PO gas relief medication. Will continue to monitor
--- NOTE | 2022-11-01 18:33 | NUR ---
Sirena from [facility] called. Transportation to [facility] will be tomorrow, will call with
[2022-11-01] MEDS: diphenhydrAMINE 25mg capsule PO SCH (20:09)
--- NOTE | 2022-11-01 20:37 | NUR ---
The patient has been restless periodically. He is difficult to follow what he is saying. He is accepting redirection.
--- NOTE | 2022-11-01 21:35 | NUR ---
The patient appears to be sleeping
[2022-11-01] MEDS ORDERED: OLANZapine 2.5MG tablet PO SCH (22:05)
--- NOTE | 2022-11-01 22:05 | NUR ---
The patient is awake and rambling and wandering around the unit. He is not making any coherrant statements. He is wanting more medications. Dr. Galindo made aware of patient mental status and orders received.
--- NOTE | 2022-11-01 22:58 | NUR ---
The patient appears to be sleeping
--- NOTE | 2022-11-01 23:27 | NUR ---
The patient up and wandering around.
--- NOTE | 2022-11-02 00:26 | NUR ---
The patient up and pacing around by his bed talking nonstop but not making any sense.
--- NOTE | 2022-11-02 01:58 | NUR ---
The patient is awake off and on. He was redirected back to his bed.
--- NOTE | 2022-11-02 03:25 | NUR ---
The patient currently is asleep on his bed but he is only sleeping for very short periods.
--- NOTE | 2022-11-02 05:05 | NUR ---
The patient is currently resting on his bed but he slept very poorly during the night.
[2022-11-02] MEDS: LORazepam 1 MG tablet PO PRN (06:54)
[2022-11-02] MEDS: simethicone 125mg capsule PO SCH (07:00)
[2022-11-02] MEDS: olanzapine 10mg tablet PO SCH (07:00)
--- NOTE | 2022-11-02 08:00 | NUR ---
RN gave nurse to nurse report Rony GODFREY from [facility] in [place], [place] [phone]. RN informed that Dr. Clement has accepted pt.. pt. [place] by county shortly.
[2022-11-02 08:28] VITALS: BP 100/69
== END 2022-11-02 08:25 ==
LOC: ER 12:59
DX: R45.851 Suicidal ideations (principal); Z20.822 Contact with and (suspected) exposure to COVID-19; F29 Unspecified psychosis not due to a substance or known physiological condition; F31.9 Bipolar disorder, unspecified; Z91.010 Allergy to peanuts; Z79.899 Other long term (current) drug therapy; Z79.1 Long term (current) use of non-steroidal anti-inflammatories (NSAID); Z79.2 Long term (current) use of antibiotics
CPT/HCPCS: 36415; 80053; 80305; 80320; 81003; 85025; 87811; 99285; Q0163

== ENCOUNTER 2023-11-13 18:39 | Emergency (ER) | payer MEDICAID ==
[~2023-11-13] VITALS: Ht 170.2 cm; Wt 68.2 kg
[2023-11-13] MEDS: LORazepam 1 MG tablet PO ONE ×2 (19:31→22:46)
[2023-11-13 20:58] LABS: ALANINE AMINOTRANSFERASE 19 U/L (12-78); ALBUMIN 4.2 G/DL (3.4-5.0); ALKALINE PHOSPHATASE 122 IU/L (46-116); ANION GAP 5 (8-16); ASPARTATE AMINO TRANSFERASE 16 U/L (10-37); BILIRUBIN,TOTAL 0.4 MG/DL (0.1-1.0); BLOOD UREA NITROGEN 15 MG/DL (7-18); BUN/CREATININE RATIO 13.9 (10.0-20.0); CHLORIDE 107 MMOL/L (99-107); CREATININE 1.08 MG/DL (0.60-1.10); GLUCOSE 77 MG/DL (70-104); POTASSIUM 3.8 MMOL/L (3.5-5.1); SODIUM 144 MMOL/L (135-145); TOTAL CARBON DIOXIDE 31.9 MMOL/L (24-32); TOTAL PROTEIN 8.5 G/DL (6.4-8.2); eCRCL 93 ML/MIN; eGFR 80 ML/MIN
[2023-11-13 21:08] LABS: BASOPHILS # (AUTO) 0.1 X10'3 (0-0.2); BASOPHILS % (AUTO) 0.5 % (0-1); EOSINOPHILS # (AUTO) 0.2 X10'3 (0-0.9); EOSINOPHILS % (AUTO) 1.5 % (0-6); ETHANOL < 10 MG/DL (<10); FREE T4 (FREE THYROXINE) 1.02 NG/DL (0.73-1.40); HEMATOCRIT 45.6 % (42.0-52.0); HEMOGLOBIN 15.3 g/dl (14.0-17.9); LYMPHOCYTES # (AUTO) 1.6 X10'3 (1.1-4.8); MAGNESIUM 2.3 MG/DL (1.5-2.4); MEAN CORPUSCULAR HEMOGLOBIN 29.6 PG (27.0-31.0); MEAN CORPUSCULAR HGB CONC 33.6 g/dL (33.0-36.5); MEAN CORPUSCULAR VOLUME 88.3 FL (78-98); MEAN PLATELET VOLUME 6.8 FL (7.4-10.4); MONOCYTES # (AUTO) 0.9 X10'3 (0-0.9); MONOCYTES % (AUTO) 7.2 % (2-12); NEUTROPHILS # (AUTO) 9.5 X10'3 (1.8-7.7); NEUTROPHILS % (AUTO) 77.8 % (42-75); PLATELET COUNT 425 X10'3 (140-440); PRO BRAIN NATRIURETIC PEPTIDE 107 PG/ML (0-125); RED BLOOD COUNT 5.16 X10'6 (4.70-6.10); RED CELL DISTRIBUTION WIDTH 12.6 % (11.5-14.5); THYROID STIMULATING HORMONE 1.61 ulU/ml (0.34-4.50); WHITE BLOOD COUNT 12.2 X10'3 (4.5-11.0)
[2023-11-13 21:31] LABS: BILIRUBIN,URINE NEGATIVE (Neg); CLARITY,URINE SLIGHTLY CLOUDY (Clear); COLOR,URINE YELLOW (Yellow); GLUCOSE, URINE NEGATIVE (Neg); KETONES,URINE NEGATIVE (Neg); LEUKOCYTE ESTERASE ,URINE NEGATIVE (Neg); NITRITES, URINE NEGATIVE (Neg); OCCULT BLOOD,URINE NEGATIVE (Neg); PROTEIN,URINE TRACE mg/dl (Neg); UROBILINOGEN,URINE 0.2 E.U/dL (0.2-1.0)
[2023-11-13] MEDS ORDERED: nicotine 14mg patch - 24hr TD ONE (22:10)
[2023-11-13 22:11] LABS: URINE AMPHETAMINE SCREEN POSITIVE (Neg); URINE BARBITUATE SCREEN NEGATIVE (Neg); URINE BENZODIAZEPINES SCREEN NEGATIVE (Neg); URINE CANNABINOID SCREEN NEGATIVE (Neg); URINE COCAINE SCREEN NEGATIVE (Neg); URINE METHADONE SCREEN NEGATIVE (Neg); URINE OPIATE SCREEN NEGATIVE (Neg); URINE PHENCYCLIDINE SCREEN NEGATIVE (Neg)
[2023-11-13 22:24] LABS: UA COLLECTION TYPE VOIDED
[2023-11-13 22:26] LABS: BACTERIA,URINE NONE SEEN /HPF (Neg); RBC,URINE NONE SEEN /HPF (0-2); SQUAMOUS EPITHELIAL CELL,UR NONE SEEN /LPF (FEW)
[2023-11-13 22:27] LABS: MUCUS STRANDS MANY /LPF (Neg)
[2023-11-13] MEDS ORDERED: QUET50TA PO (22:27)
[2023-11-13] MEDS ORDERED: LORA2SYR SUBCUT (22:27)
[2023-11-13] MEDS ORDERED: QUEtiapine 25mg tablet PO SCH (22:30)
[2023-11-13] MEDS: QUEtiapine 25mg tablet PO ONE (22:46)
[2023-11-14 05:45] VITALS: TEMP 98.6
[2023-11-14] MEDS: nicotine 14mg patch - 24hr TD ONE (08:01)
[2023-11-14 10:39] VITALS: BP 148/87; PULSE 89; RESP 16; O2SAT 100
== END 2023-11-14 10:42 | disposition home or self-care (01) ==
LOC: EDBD 18:40 → ER 18:40
DX: Z13.30 Encounter for screening examination for mental health and behavioral disorders, unspecified (principal); F41.9 Anxiety disorder, unspecified; F32.A Depression, unspecified; Z72.89 Other problems related to lifestyle; Z79.899 Other long term (current) drug therapy; Z91.010 Allergy to peanuts
CPT/HCPCS: 36415; 71045; 80053; 80305; 80320; 81001; 83735; 83880; 84439; 84443; 84484; 85025; 93005; 99285

== ENCOUNTER 2024-02-09 19:03 | Emergency (ER) | payer OTHER ==
[~2024-02-09] VITALS: Ht 167.6 cm; Wt 73.2 kg
[~2024-02-09 19:03] MED LIST changes: -AMPH15TA2 PO; -ESCI5TAB PO; +LORA2SYR SUBCUT; +QUET50TA PO; -ZOLP5TAB8 PO
[2024-02-09] MEDS: QUEtiapine 25mg tablet PO ONE (19:40)
[2024-02-09] MEDS ORDERED: QUET200T PO (19:47)
[2024-02-09] MEDS ORDERED: QUET25TA PO (19:47)
[2024-02-09 20:34] VITALS: BP 120/72; PULSE 66; RESP 15; TEMP 98.5; O2SAT 98
[2024-02-10] MEDS ORDERED: QUET50TA PO (14:06)
[2024-02-10] MEDS ORDERED: QUET200T PO (14:07)
== END 2024-02-09 20:00 | disposition home or self-care (01) ==
LOC: EDBD → EDSEX → ER 19:04 → MERGE 19:04 → ER 20:00
DX: F41.9 Anxiety disorder, unspecified (principal); Z76.0 Encounter for issue of repeat prescription; F64.0 Transsexualism
CPT/HCPCS: 99283

== ENCOUNTER 2024-02-10 12:59 | Emergency (ER) | payer MEDICAID, OTHER ==
[~2024-02-10] VITALS: Ht 167.6 cm; Wt 71.0 kg
[~2024-02-10 12:59] MED LIST changes: +QUET200T PO; +QUET25TA PO
[2024-02-10 13:06] VITALS: BP 120/78; PULSE 122; RESP 16; TEMP 97.4; O2SAT 95
[2024-02-10] MEDS ORDERED: QUET50TA PO (14:06)
[2024-02-10] MEDS ORDERED: QUET200T PO (14:07)
== END 2024-02-10 14:18 | disposition home or self-care (01) ==
LOC: EDBD → ER 13:00 → EDSEX 13:00 → MERGE 13:00 → ER 14:18
DX: R45.1 Restlessness and agitation (principal); Z76.0 Encounter for issue of repeat prescription; Z91.010 Allergy to peanuts; Z79.899 Other long term (current) drug therapy
CPT/HCPCS: 99281; J7030

== ENCOUNTER 2024-02-11 00:27 | Emergency (ER) | payer MEDICAID ==
[~2024-02-11] VITALS: Ht 167.6 cm; Wt 56.6 kg
[2024-02-11 00:37] VITALS: BP 127/89; PULSE 132; RESP 18; TEMP 98.1; O2SAT 97
[2024-02-11] MEDS ORDERED: quetiapine 100mg tablet PO SCH (00:45)
[2024-02-11] MEDS: quetiapine 100mg tablet PO ONE (01:42)
[2024-02-12] MEDS ORDERED: QUET200T31 PO (20:02)
[2024-02-12] MEDS ORDERED: QUET25TA36 PO (20:02)
== END 2024-02-11 01:54 | disposition home or self-care (01) ==
LOC: ER 00:28
DX: R45.1 Restlessness and agitation (principal); Z91.010 Allergy to peanuts; Z79.899 Other long term (current) drug therapy
CPT/HCPCS: 99283

== ENCOUNTER 2024-02-12 17:43 | Emergency (ER) | payer MEDICAID ==
[~2024-02-12] VITALS: Ht 172.7 cm; Wt 68.2 kg
[2024-02-12] MEDS: ziprasidone IM 20mg inj **IM only IM ONE (18:51)
[2024-02-12] MEDS ORDERED: QUET25TA36 PO (20:02)
[2024-02-12] MEDS ORDERED: QUET200T31 PO (20:02)
[2024-02-12 20:16] LABS: BASOPHILS % (AUTO) 0.5 % (0-1); EOSINOPHILS # (AUTO) 0.5 X10'3 (0-0.9); EOSINOPHILS % (AUTO) 5.2 % (0-6); HEMATOCRIT 35.6 % (35.0-45.0); HEMOGLOBIN 12.1 g/dl (12.0-16.0); LYMPHOCYTES # (AUTO) 2.8 X10'3 (1.1-4.8); LYMPHOCYTES % (AUTO) 30.3 % (21-51); MEAN CORPUSCULAR HEMOGLOBIN 29.9 PG (27.0-31.0); MEAN CORPUSCULAR HGB CONC 34.1 g/dL (33.0-36.5); MEAN CORPUSCULAR VOLUME 87.6 FL (78-98); MEAN PLATELET VOLUME 7.4 FL (7.4-10.4); MONOCYTES # (AUTO) 0.7 X10'3 (0-0.9); MONOCYTES % (AUTO) 7.9 % (2-12); NEUTROPHILS # (AUTO) 5.1 X10'3 (1.8-7.7); NEUTROPHILS % (AUTO) 56.1 % (42-75); PLATELET COUNT 229 X10'3 (140-440); RED BLOOD COUNT 4.06 X10'6 (4.20-5.60); RED CELL DISTRIBUTION WIDTH 13.2 % (11.5-14.5); WHITE BLOOD COUNT 9.1 X10'3 (4.5-11.0)
[2024-02-12 20:18] LABS: URINE AMPHETAMINE SCREEN POSITIVE (Neg); URINE BARBITUATE SCREEN NEGATIVE (Neg); URINE BENZODIAZEPINES SCREEN NEGATIVE (Neg); URINE CANNABINOID SCREEN NEGATIVE (Neg); URINE COCAINE SCREEN NEGATIVE (Neg); URINE METHADONE SCREEN NEGATIVE (Neg); URINE OPIATE SCREEN NEGATIVE (Neg); URINE PHENCYCLIDINE SCREEN NEGATIVE (Neg)
[2024-02-12 20:24] LABS: ALBUMIN 3.6 G/DL (3.4-5.0); ANION GAP 9 (8-16); BLOOD UREA NITROGEN 22 MG/DL (7-18); BUN/CREATININE RATIO 24.4 (10.0-20.0); CALCIUM 8.9 MG/DL (8.5-10.1); CHLORIDE 107 MMOL/L (99-107); ETHANOL < 10 MG/DL (<10); GLUCOSE 130 MG/DL (70-104); POTASSIUM 3.7 MMOL/L (3.5-5.1); SODIUM 144 MMOL/L (135-145); TOTAL CARBON DIOXIDE 28.5 MMOL/L (24-32); eCRCL 91 ML/MIN; eGFR 73 ML/MIN
[2024-02-12] MEDS: quetiapine 100mg tablet PO SCH (21:00)
[2024-02-12] MEDS: QUEtiapine 25mg tablet PO SCH (21:00)
[2024-02-13] MEDS: diphenhydrAMINE 50 mg/ml inj IM STA (00:57)
[2024-02-13] MEDS: haloperidol lactate 5mg/ml inj IM STA (00:57)
[2024-02-13] MEDS: LORazepam 2 mg/ml vial IM STA (00:57)
[2024-02-13] MEDS: LORazepam 2 mg/ml vial IV SCH (01:05)
[2024-02-13 08:00] VITALS: BP 122/64; PULSE 98; RESP 18; O2SAT 99
[2024-02-13 13:22] VITALS: TEMP 98.4
== END 2024-02-13 13:26 | disposition home or self-care (01) ==
LOC: ER 17:44
DX: F60.9 Personality disorder, unspecified (principal); Z20.822 Contact with and (suspected) exposure to COVID-19; Z91.010 Allergy to peanuts; Z79.899 Other long term (current) drug therapy; Z72.89 Other problems related to lifestyle
CPT/HCPCS: 36415; 80048; 80305; 80320; 85025; 87811; 96372; 99284; J1200; J1630; J2060; J3486

== ENCOUNTER 2024-03-01 05:42 | Emergency (ER) | payer MEDICAID ==
[~2024-03-01] VITALS: Ht 172.7 cm; Wt 73.2 kg
[~2024-03-01 05:42] MED LIST changes: -QUET200T PO; +QUET200T31 PO; -QUET25TA PO; +QUET25TA36 PO; -QUET50TA PO
[2024-03-01] MEDS ORDERED: QUET50TA PO (06:23)
[2024-03-01] MEDS: QUEtiapine 25mg tablet PO STA (06:47)
[2024-03-01 07:26] VITALS: BP 147/82; PULSE 106; RESP 17; TEMP 98.5; O2SAT 98
== END 2024-03-01 07:35 | disposition home or self-care (01) ==
LOC: ER 05:42
DX: R45.1 Restlessness and agitation (principal); F64.0 Transsexualism; Z72.89 Other problems related to lifestyle
CPT/HCPCS: 99283

== ENCOUNTER 2024-03-04 02:04 | Emergency (ER) | payer MEDICAID ==
[~2024-03-04] VITALS: Ht 167.6 cm; Wt 68.8 kg
[~2024-03-04 02:04] MED LIST changes: +QUET50TA PO
[2024-03-04] MEDS ORDERED: QUEtiapine 25mg tablet PO SCH (02:45)
[2024-03-04] MEDS: quetiapine 100mg tablet PO SCH (03:08)
[2024-03-04 03:13] VITALS: BP 115/83; PULSE 88; RESP 15; TEMP 97.8; O2SAT 87
== END 2024-03-04 03:15 | disposition home or self-care (01) ==
LOC: ER 02:05
DX: F41.9 Anxiety disorder, unspecified (principal); Z91.010 Allergy to peanuts; Z79.899 Other long term (current) drug therapy
CPT/HCPCS: 99283

== ENCOUNTER 2024-08-13 11:34 | Emergency (ER) | payer MEDICAID ==
[~2024-08-13] VITALS: Ht 172.7 cm; Wt 80.2 kg
[2024-08-13 12:44] VITALS: BP 118/75; PULSE 99; RESP 14; TEMP 98; O2SAT 98
== END 2024-08-13 12:58 | disposition home or self-care (01) ==
LOC: ER 11:35
DX: M25.511 Pain in right shoulder (principal); Z91.010 Allergy to peanuts; W05.1XXA Fall from non-moving nonmotorized scooter, initial encounter; Y93.89 Activity, other specified; Y92.89 Other specified places as the place of occurrence of the external cause; Y99.8 Other external cause status
CPT/HCPCS: 73030; 99284; A4565

== ENCOUNTER 2024-11-09 16:15 | Emergency (ER) | payer MEDICAID ==
[~2024-11-09] VITALS: Ht 172.7 cm; Wt 79.7 kg
[2024-11-09 16:17] VITALS: TEMP 98
[2024-11-09] MEDS: ziprasidone 20mg capsule PO ONE (16:59)
[2024-11-09] MEDS ORDERED: LORA-269 PO (17:06)
[2024-11-09 17:09] LABS: BASOPHILS % (AUTO) 0.6 % (0-1); EOSINOPHILS # (AUTO) 0.1 X10'3 (0-0.9); EOSINOPHILS % (AUTO) 1.5 % (0-6); HEMATOCRIT 43.1 % (35.0-45.0); HEMOGLOBIN 14.6 g/dl (12.0-16.0); LYMPHOCYTES # (AUTO) 1.9 X10'3 (1.1-4.8); LYMPHOCYTES % (AUTO) 26.7 % (21-51); MEAN CORPUSCULAR HEMOGLOBIN 28.9 PG (27.0-31.0); MEAN CORPUSCULAR HGB CONC 33.9 g/dL (33.0-36.5); MEAN CORPUSCULAR VOLUME 85.2 FL (78-98); MEAN PLATELET VOLUME 6.4 FL (7.4-10.4); MONOCYTES # (AUTO) 0.7 X10'3 (0-0.9); MONOCYTES % (AUTO) 9.9 % (2-12); NEUTROPHILS # (AUTO) 4.3 X10'3 (1.8-7.7); NEUTROPHILS % (AUTO) 61.3 % (42-75); PLATELET COUNT 405 X10'3 (140-440); RED BLOOD COUNT 5.06 X10'6 (4.20-5.60); RED CELL DISTRIBUTION WIDTH 13.5 % (11.5-14.5); WHITE BLOOD COUNT 6.9 X10'3 (4.5-11.0)
[2024-11-09] MEDS ORDERED: AMPH15TA2 PO (17:09)
[2024-11-09] MEDS ORDERED: AMPH30CA3 PO (17:09)
[2024-11-09] MEDS: diazepam 5mg tablet PO ONE (17:13)
[2024-11-09] MEDS: diphenhydrAMINE 25mg capsule PO ONE (17:14)
[2024-11-09 17:15] LABS: URINE HCG NEGATIVE (NEG)
[2024-11-09 17:16] LABS: BILIRUBIN,URINE NEGATIVE (Neg); CLARITY,URINE CLEAR (Clear); COLOR,URINE YELLOW (Yellow); GLUCOSE, URINE NEGATIVE (Neg); KETONES,URINE NEGATIVE (Neg); LEUKOCYTE ESTERASE ,URINE NEGATIVE (Neg); NITRITES, URINE NEGATIVE (Neg); OCCULT BLOOD,URINE NEGATIVE (Neg); PROTEIN,URINE NEGATIVE (Neg); UA COLLECTION TYPE VOIDED; UROBILINOGEN,URINE 0.2 E.U/dL (0.2-1.0)
[2024-11-09] MEDS: diazepam inj 5 MG/ML inj. IV ONE (17:18)
[2024-11-09] MEDS: diphenhydrAMINE 50 mg/ml inj IM ONE (17:18)
[2024-11-09] MEDS: haloperidol lactate 5mg/ml inj IM ONE (17:19)
[2024-11-09 17:27] LABS: ALBUMIN 4.6 G/DL (3.4-5.0); ANION GAP 7 (8-16); BLOOD UREA NITROGEN 10 MG/DL (7-18); CHLORIDE 104 MMOL/L (99-107); CREATININE 0.83 MG/DL (0.40-0.90); ETHANOL < 10 MG/DL (<10); GLUCOSE 91 MG/DL (70-104); POTASSIUM 3.9 MMOL/L (3.5-5.1); SODIUM 137 MMOL/L (135-145); THYROID STIMULATING HORMONE 0.68 ulU/ml (0.34-4.50); TOTAL CARBON DIOXIDE 26.4 MMOL/L (24-32); eCRCL 98 ML/MIN; eGFR 80 ML/MIN
[2024-11-09 17:36] LABS: URINE AMPHETAMINE SCREEN POSITIVE (Neg); URINE BARBITUATE SCREEN NEGATIVE (Neg); URINE BENZODIAZEPINES SCREEN NEGATIVE (Neg); URINE CANNABINOID SCREEN NEGATIVE (Neg); URINE COCAINE SCREEN NEGATIVE (Neg); URINE METHADONE SCREEN NEGATIVE (Neg); URINE OPIATE SCREEN NEGATIVE (Neg); URINE PHENCYCLIDINE SCREEN NEGATIVE (Neg)
[2024-11-09] MEDS ORDERED: LORazepam 1 MG tablet PO PRN (17:50)
[2024-11-09 18:34] VITALS: BP 142/93; PULSE 102; RESP 16; O2SAT 99
[2024-11-09] MEDS: AMPHET PO SCH (19:14)
[2024-11-09] MEDS: D AMPHET PO SCH (19:14)
[2024-11-09] MEDS: AMPHET ASP PO SCH (19:14)
[2024-11-09] MEDS ORDERED: quetiapine 100mg tablet PO SCH (21:00)
[2024-11-10] MEDS ORDERED: D AMPHET PO SCH (08:00)
[2024-11-10] MEDS ORDERED: AMPHET PO SCH (08:00)
[2024-11-10] MEDS ORDERED: AMPHET ASP PO SCH (08:00)
== END 2024-11-09 19:56 | disposition home or self-care (01) ==
LOC: ER 16:16
DX: F60.9 Personality disorder, unspecified (principal); Z91.010 Allergy to peanuts; Z79.899 Other long term (current) drug therapy; Z72.89 Other problems related to lifestyle; Z20.822 Contact with and (suspected) exposure to COVID-19
CPT/HCPCS: 36415; 80048; 80305; 80320; 81003; 81025; 84443; 85025; 87811; 99284; Q0163

== ENCOUNTER 2024-11-10 23:04 | Emergency (ER) | payer MEDICAID ==
[~2024-11-10 23:04] MED LIST changes: +AMPH15TA2 PO; +AMPH30CA3 PO; +LORA-269 PO; -LORA2SYR SUBCUT; -QUET25TA36 PO; -QUET50TA PO
== END 2024-11-10 23:58 | disposition left against medical advice (07) ==
LOC: ER 23:05
DX: R41.0 Disorientation, unspecified (principal); Z91.010 Allergy to peanuts; Z53.21 Procedure and treatment not carried out due to patient leaving prior to being seen by health care provider

== ENCOUNTER 2024-11-16 09:45 | Emergency (ER) | payer MEDICAID ==
[~2024-11-16] VITALS: Ht 172.7 cm; Wt 77.0 kg
[2024-11-16 09:46] VITALS: BP 141/93; PULSE 129; TEMP 98; O2SAT 97
[2024-11-16 10:32] LABS: BASOPHILS % (AUTO) 0.5 % (0-1); EOSINOPHILS # (AUTO) 0.2 X10'3 (0-0.9); EOSINOPHILS % (AUTO) 3.5 % (0-6); HEMATOCRIT 42.5 % (35.0-45.0); HEMOGLOBIN 14.6 g/dl (12.0-16.0); LYMPHOCYTES # (AUTO) 1.7 X10'3 (1.1-4.8); LYMPHOCYTES % (AUTO) 32.1 % (21-51); MEAN CORPUSCULAR HEMOGLOBIN 29.3 PG (27.0-31.0); MEAN CORPUSCULAR HGB CONC 34.2 g/dL (33.0-36.5); MEAN CORPUSCULAR VOLUME 85.7 FL (78-98); MEAN PLATELET VOLUME 6.6 FL (7.4-10.4); MONOCYTES # (AUTO) 0.5 X10'3 (0-0.9); MONOCYTES % (AUTO) 9.1 % (2-12); NEUTROPHILS # (AUTO) 2.9 X10'3 (1.8-7.7); NEUTROPHILS % (AUTO) 54.8 % (42-75); PLATELET COUNT 344 X10'3 (140-440); RED BLOOD COUNT 4.96 X10'6 (4.20-5.60); RED CELL DISTRIBUTION WIDTH 13.6 % (11.5-14.5); WHITE BLOOD COUNT 5.4 X10'3 (4.5-11.0)
--- NOTE | 2024-11-16 10:35 | Physician Documentation ---
History of Present Illness ~ Chief Complaint: Mental Health Eval Stated Complaint: MH Time Seen by MD: 10:01 Primary Medical Doctor: Wendie Carter MD HPI 34 year old male presented reporting that he was recommended to receive a medical clearance by a physician. No psych complaints at this time although he does have a psych history and suicidal ideation history. He is currently not homicidal or suicidal, nor does he report delusions or hallucinations. Denies medical complaints. Medication Reconciliation Allergies: Coded Allergies: peanut (Verified Allergy, Unknown, 03/04/24) Scheduled Amphet Asp/Amphet/D-Amphet (Adderall 15 Mg Tablet), 1 TAB PO BID, (Reported) Amphet Asp/Amphet/D-Amphet XR* (Adderall XR*), 1 CAP PO QAM, (Reported) Quetiapine Fumarate (Quetiapine Fumarate), 1 TAB PO HS, (Reported) Scheduled PRN Lorazepam (Ativan), 1 TAB PO DAILY PRN for anxiety, (Reported) Discontinued Medications Lorazepam (Lorazepam), 1 MG SUBCUT Q4H, (Reported) Discontinued Reason: Other Quetiapine Fumarate (Quetiapine Fumarate), 1 TAB PO HS, (Reported) Discontinued Reason: Other Quetiapine Fumarate (Seroquel), 1 TAB PO BID Discontinued Reason: Other Past Medical History Past Medical History: *PSYCH* Past Surgical History: no surgical history Alcohol Use: Occasionally Drug Use: none Lives with: Family Lives In: Home Occupation: student Review of Systems All Other Systems at this time: Reviewed and Negative Physical Exam Vital Signs: RN Vital Signs have been reviewed: Yes, Temperature: 98.0, Source: Temporal, Heart Rate: 129, Respiratory Rate: 22, BP: 141/93, Pulse Oximetry: 97, Weight: 77.000 Oxygen Flow Rate: 0 Physical Exam HEENT: PERRL, moist oral mucosa, EOMI MSK: no deformity Skin: w/d/i, no rash Neuro: alert, nonfocal Psych: normal affect Progress Progress Note 34 year old male with no psych complaints today and wishing for medical clearance. Exam and workup benign, will discharge with return precautions. Results/Orders Results/Orders Completed Orders - YANI JENKINS MD Cbc/Diff (11/16/24 10:05) CMP (11/16/24 10:05) Vital Signs 11/16/24 11/16/24 09:46 10:39 Temp 98.0 Pulse 129 Resp 22 16 B/P (MAP) 141/93 Pulse Ox 97 O2 Flow Rate 0 Laboratory Tests Test 11/16/24 09:55 White Blood Count 5.4 Red Blood Count 4.96 Hemoglobin 14.6 Hematocrit 42.5 Mean Corpuscular Volume 85.7 Mean Corpuscular Hemoglobin 29.3 Mean Corpuscular Hemoglobin Concent 34.2 Red Cell Distribution Width 13.6 Platelet Count 344 Mean Platelet Volume 6.6 L Neutrophils (%) (Auto) 54.8 Lymphocytes (%) (Auto) 32.1 Monocytes (%) (Auto) 9.1 Eosinophils (%) (Auto) 3.5 Basophils (%) (Auto) 0.5 Neutrophils # (Auto) 2.9 Lymphocytes # (Auto) 1.7 Monocytes # (Auto) 0.5 Eosinophils # (Auto) 0.2 Basophils # (Auto) 0.0 CBC Comment Sodium Level 141 Potassium Level 3.8 Chloride Level 105 Carbon Dioxide Level 30.4 Anion Gap 6 L Blood Urea Nitrogen 17 Creatinine 0.86 Estimated GFR/1.73 m2 76 BUN/Creatinine Ratio 19.8 Glucose Level 119 H Calcium Level 8.7 Total Bilirubin 0.3 Aspartate Amino Transf (AST/SGOT) 19 Alanine Aminotransferase (ALT/SGPT) 26 Alkaline Phosphatase 116 Total Protein 7.5 Albumin 4.0 Globulin 3.5 Albumin/Globulin Ratio 1.1 Chemistry Comments Medical Decision Making Findings Unremarkable workup, medically clear, will discharge with return precautions. Verbalized plan of self-care. Differential Dx:Considerations: Include: Alcohol abuse, Anxiety, Bipolar disorder, Conversion disorder, Encephaloathy, Homicidal, Personality disorder, Substance abuse, Suicidal Departure Disposition: 01 HOME / SELF CARE / HOMELESS Impression: Primary Impression: Well adult exam Condition: Stable Discharge Instructions: Medical Screening Exam Referrals: NO PRIMARY CARE PROVIDER (PCP) Education Educated: Patient Educated regarding: need for follow up Signature Scribe Signature: . Attestation: . YANI JENKINS MD Nov 16, 2024 10:35
[2024-11-16 10:36] LABS: ALANINE AMINOTRANSFERASE 26 U/L (12-78); ALBUMIN/GLOBULIN RATIO 1.1 (1.1-1.5); ALKALINE PHOSPHATASE 116 IU/L (46-116); ANION GAP 6 (8-16); ASPARTATE AMINO TRANSFERASE 19 U/L (10-37); BILIRUBIN,TOTAL 0.3 MG/DL (0.1-1.0); BLOOD UREA NITROGEN 17 MG/DL (7-18); BUN/CREATININE RATIO 19.8 (10.0-20.0); CALCIUM 8.7 MG/DL (8.5-10.1); CHLORIDE 105 MMOL/L (99-107); CREATININE 0.86 MG/DL (0.40-0.90); GLUCOSE 119 MG/DL (70-104); POTASSIUM 3.8 MMOL/L (3.5-5.1); SODIUM 141 MMOL/L (135-145); TOTAL CARBON DIOXIDE 30.4 MMOL/L (24-32); TOTAL PROTEIN 7.5 G/DL (6.4-8.2); eCRCL 95 ML/MIN; eGFR 76 ML/MIN
[2024-11-16 10:39] VITALS: RESP 16
== END 2024-11-16 11:05 | disposition home or self-care (01) ==
LOC: ER 09:46
DX: R45.851 Suicidal ideations (principal); Z79.899 Other long term (current) drug therapy; Z72.89 Other problems related to lifestyle
CPT/HCPCS: 36415; 80053; 85025; 99283

== ENCOUNTER 2024-11-27 16:35 | Emergency (ER) | payer MEDICAID ==
[~2024-11-27] VITALS: Ht 170.2 cm; Wt 76.4 kg
[2024-11-27 16:40] VITALS: BP 149/95; PULSE 93; RESP 16; TEMP 98.1; O2SAT 99
--- NOTE | 2024-11-27 17:11 | Physician Documentation ---
History of Present Illness ~ Chief Complaint: Psych Stated Complaint: ROSALIO Primary Medical Doctor: Wendie Carter MD HPI This 34-year-old male with a history of ADHD, PTSD, and generalized anxiety disorder presents requesting a psychiatric evaluation due to having court tomorrow and wanting a psychiatric clearance that he could show the actuary. Patient reports that he was seen for similar at [facility] yesterday and attempted to see his primary care provider for this today though was unable to get an appointment today. Patient reports lifelong" thoughts of harming himself however reports no intention of acting on these thoughts and reports that he feels physically well. Patient reports he does not feel like he is having a psychiatric emergency and rather is requesting a clearance stating so. Patient reports he has not having hallucinations and has no suicidal ideation, or homicidal ideation. Medication Reconciliation Allergies: Coded Allergies: peanut (Verified Allergy, Unknown, 11/27/24) Scheduled Amphet Asp/Amphet/D-Amphet (Adderall 15 Mg Tablet), 1 TAB PO BID, (Reported) Amphet Asp/Amphet/D-Amphet XR* (Adderall XR*), 1 CAP PO QAM, (Reported) Quetiapine Fumarate (Quetiapine Fumarate), 1 TAB PO HS, (Reported) Scheduled PRN Lorazepam (Ativan), 1 TAB PO DAILY PRN for anxiety, (Reported) Past Medical History Past Medical History: *PSYCH*, Anxiety Past Surgical History: no surgical history Alcohol Use: Occasionally Drug Use: none Lives with: Family Lives In: Home Occupation: student Review of Systems ROS As stated above in the HPI, otherwise all systems are reviewed and negative. Physical Exam Vital Signs: Temperature: 98.1, Heart Rate: 93, Respiratory Rate: 16, BP: 149/95, Pulse Oximetry: 99, Weight: 76.360 Physical Exam VITALS: Reviewed and as above. GENERAL: Alert, nontoxic appearing, no apparent distress. RESPIRATORY: No increased work of breathing, no respiratory distress, speaking in full clear sentences PSYCH: Normal mood and affect, non agitated Progress Results/Orders Results/Orders Vital Signs 11/27/24 16:40 Temp 98.1 Pulse 93 Resp 16 B/P (MAP) 149/95 Pulse Ox 99 Medical Decision Making Findings At this time patient is reporting no suicidal ideation, homicidal ideation, and appears to be able to provide for his basic needs therefore he does not meet criteria for a 1799 mental health hold. Patient is hemodynamically stable and is in no acute distress. MSE performed in triage and patient returned to ED lobby by nursing staff, while awaiting placement to an emergency department bed for further physical exam and history patient appears to have eloped. Differential Dx:Considerations: Include: Alcohol abuse, Anxiety, Bipolar disorder, Conversion disorder, Homicidal, Panic disorder, Personality disorder, Schizophrenia, Substance abuse, Suicidal Departure Disposition: LEFT AWOL/ELOPED Impression: Primary Impression: General medical exam Condition: Stable Referrals: NO PRIMARY CARE PROVIDER (PCP) Signature Scribe Signature: No scribe Attestation: The note accurately reflects work and decisions made by me.CAIO Lu 11/28/24 04:18 JUAN MELO November 27, 2024 17:11
== END 2024-11-27 17:57 | disposition left against medical advice (07) ==
LOC: ER 16:36
DX: Z00.8 Encounter for other general examination (principal); F41.9 Anxiety disorder, unspecified
CPT/HCPCS: 99281

== ENCOUNTER 2024-12-25 00:37 | Emergency (ER) | payer MEDICAID ==
[~2024-12-25] VITALS: Ht 167.6 cm; Wt 75.0 kg
--- NOTE | 2024-12-25 01:41 | Physician Documentation ---
History of Present Illness ~ General Chief Complaint: See Chief Complaint Stated Complaint: ALOC Time Seen by MD: 00:49 Primary Medical Doctor: Raul Mode of Arrival: POV History of Present Illness Initial Comments Patient presents to the emergency room for evaluation. He states that he feels they may have gotten his psychiatric medications wrong and he called an ambulance tonight because he could not sleep. He is refusing lab work. Denies SI/HI Medication Reconciliation Allergies: Coded Allergies: peanut (Verified Allergy, Unknown, 11/27/24) Scheduled Amphet Asp/Amphet/D-Amphet XR* (Adderall XR*), 1 CAP PO QAM, (Reported) Dextroamphetamine/Amphetamine (Adderall 30 mg Tablet), 1 TAB PO DAILY, (Reported) Quetiapine Fumarate (Quetiapine Fumarate), 1 TAB PO HS, (Reported) Scheduled PRN Baclofen (Baclofen), 1 TAB PO Q8H PRN for muscle spasms, (Reported) Lorazepam (Ativan), 1 TAB PO DAILY PRN for anxiety, (Reported) Discontinued Medications Amphet Asp/Amphet/D-Amphet (Adderall 15 Mg Tablet), 1 TAB PO BID, (Reported) Discontinued Reason: patient no longer taking Baclofen (Baclofen), 1 TAB PO Q8H Discontinued Reason: wrong med Review of Systems ROS All review of systems negative except as per HPI Physical Exam Physical Exam Vital Signs: Temperature: 98.7, Source: Oral, Heart Rate: 118, Respiratory Rate: 14, BP: 134/89, Pulse Oximetry: 98, Weight: 75.000 Oxygen Flow Rate: 0 Physical Exam General: Patient is awake, alert, oriented x4 in no acute distress Head: Normocephalic and atraumatic. Eyes: Conjunctival normal. EOMI. PERRL. ENT: Mucous membranes moist. Neck: Supple, trachea is midline. Chest: Clear to auscultation bilaterally without rales, rhonchi, or wheezes. There is no accessory muscle use or retractions. Cardiac: RRR without murmurs, gallops, or rubs. Psych: Poor eye contact, slow to respond, decreased affect Progress Progress Note Patient is sleeping Results/Orders Results/Orders Orders - DAWN SOTO MD Close Observation Level (12/25/24 01:10) Completed Orders - DAWN SOTO MD Cbc/Diff (12/25/24 01:10) Drug Screen, Urine (12/25/24 01:10) Ethanol (12/25/24 01:10) BMP (12/25/24 01:10) Regular Diet (12/25/24 Breakfast) Melatonin Tablet (Melatonin Tablet) (12/25/24 01:50) Diphenhydramine Capsule (Benadryl Capsul (12/25/24 01:50) Ua With Microscopic (12/25/24 07:14) Electrocardiogram (12/25/24 00:49) Vital Signs 12/25/24 12/25/24 12/25/24 12/25/24 00:58 01:13 02:00 03:53 Temp 98.7 98.2 Pulse 118 116 96 Resp 14 15 14 B/P (MAP) 134/89 140/95 (110) 110/70 (83) Pulse Ox 98 97 98 O2 Flow Rate 0 0 0 12/25/24 12/25/24 12/25/24 05:26 06:51 08:37 Temp 98.0 98.0 Pulse 93 87 93 Resp 14 15 15 B/P (MAP) 118/85 (96) 128/81 (97) 117/85 Pulse Ox 98 98 98 O2 Flow Rate 0 0 Laboratory Tests Test 12/25/24 02:49 12/25/24 07:14 White Blood Count 9.5 Red Blood Count 4.60 L Hemoglobin 13.6 L Hematocrit 39.3 L Mean Corpuscular Volume 85.3 Mean Corpuscular Hemoglobin 29.6 Mean Corpuscular Hemoglobin Concent 34.7 Red Cell Distribution Width 13.0 Platelet Count 358 Mean Platelet Volume 6.8 L Neutrophils (%) (Auto) 66.0 Lymphocytes (%) (Auto) 19.6 L Monocytes (%) (Auto) 9.2 Eosinophils (%) (Auto) 4.5 Basophils (%) (Auto) 0.7 Neutrophils # (Auto) 6.3 Lymphocytes # (Auto) 1.9 Monocytes # (Auto) 0.9 Eosinophils # (Auto) 0.4 Basophils # (Auto) 0.1 CBC Comment Sodium Level 138 Potassium Level 3.5 Chloride Level 102 Carbon Dioxide Level 27.6 Anion Gap 8 Blood Urea Nitrogen 13 Creatinine 0.89 Estimated GFR/1.73 m2 > 90 BUN/Creatinine Ratio 14.6 Glucose Level 102 Calcium Level 8.9 Albumin 4.1 Chemistry Comments Ethyl Alcohol Level < 10 Urine Specimen Description Voided Urine Color Yellow Urine Clarity Clear Urine pH 6.0 Urine Specific [place] >=1.030 Urine Protein Trace Urine Glucose (UA) Negative Urine Ketones 15 H Urine Occult Blood Negative Urine Nitrite Negative Urine Bilirubin Moderate Urine Urobilinogen 1.0 Urine Leukocyte Esterase Negative Urine RBC None seen Urine WBC 10-20 H Urine Squamous Epithelial Cells Few Urine Bacteria Few Urine Mucus Many Volume Urine Centrifuged 10 ml Urine Comment Urine Opiates Screen Negative Urine Methadone Screen Negative Urine Fentanyl Screen Negative Urine Barbiturates Screen Negative Urine Phencyclidine Screen Negative Urine Amphetamines Screen Positive Urine Benzodiazepines Screen Negative Urine Cocaine Screen Negative Urine Cannabinoids Screen Negative Drug Screen Comment EKG/XRAY/CT/US/VASC/MRI EKG : Additional Comment EKG interpreted by myself shows time of 0049, rate 114, sinus tachycardia, right axis deviation, nonspecific ST-T changes Medical Decision Making Findings Patient presents to the emergency room with insomnia and stating that he feels that they have got his medicines wrong. He denies any SI/HI. I do not believe he is gravely disabled. The need to follow up with mental health services discussed. Departure Disposition: HOME / SELF CARE / HOMELESS Impression: Primary Impression: Insomnia Condition: Stable Discharge Instructions: Insomnia Additional Instructions: Follow up with your therapist for medication adjustments. Referrals: NO PRIMARY CARE PROVIDER (PCP) Education Educated: Patient Educated regarding: diagnosis, treatment, need for follow up Signature Scribe Signature: no scribe Attestation: The note accurately reflects work and decisions made by me.Dawn Soto MD 12/25/24 06:08 DAWN SOTO MD Dec 25, 2024 01:41
[2024-12-25] MEDS: diphenhydrAMINE 25mg capsule PO ONE (03:08)
[2024-12-25] MEDS: Melatonin 3mg tablet PO ONE (03:09)
[2024-12-25 03:14] LABS: BASOPHILS # (AUTO) 0.1 X10'3 (0-0.2); BASOPHILS % (AUTO) 0.7 % (0-1); EOSINOPHILS # (AUTO) 0.4 X10'3 (0-0.9); EOSINOPHILS % (AUTO) 4.5 % (0-6); HEMATOCRIT 39.3 % (42.0-52.0); HEMOGLOBIN 13.6 g/dl (14.0-17.9); LYMPHOCYTES # (AUTO) 1.9 X10'3 (1.1-4.8); LYMPHOCYTES % (AUTO) 19.6 % (21-51); MEAN CORPUSCULAR HEMOGLOBIN 29.6 PG (27.0-31.0); MEAN CORPUSCULAR HGB CONC 34.7 g/dL (33.0-36.5); MEAN CORPUSCULAR VOLUME 85.3 FL (78-98); MEAN PLATELET VOLUME 6.8 FL (7.4-10.4); MONOCYTES # (AUTO) 0.9 X10'3 (0-0.9); MONOCYTES % (AUTO) 9.2 % (2-12); NEUTROPHILS # (AUTO) 6.3 X10'3 (1.8-7.7); PLATELET COUNT 358 X10'3 (140-440); WHITE BLOOD COUNT 9.5 X10'3 (4.5-11.0)
[2024-12-25 03:26] LABS: ALBUMIN 4.1 G/DL (3.4-5.0); ANION GAP 8 (8-16); BLOOD UREA NITROGEN 13 MG/DL (7-18); BUN/CREATININE RATIO 14.6 (10.0-20.0); CALCIUM 8.9 MG/DL (8.5-10.1); CHLORIDE 102 MMOL/L (99-107); CREATININE 0.89 MG/DL (0.60-1.10); ETHANOL < 10 MG/DL (<10); GLUCOSE 102 MG/DL (70-104); POTASSIUM 3.5 MMOL/L (3.5-5.1); SODIUM 138 MMOL/L (135-145); TOTAL CARBON DIOXIDE 27.6 MMOL/L (24-32); eCRCL 108 ML/MIN; eGFR > 90 ML/MIN
[2024-12-25 07:33] LABS: BILIRUBIN,URINE MODERATE (Neg); CLARITY,URINE CLEAR (Clear); COLOR,URINE YELLOW (Yellow); GLUCOSE, URINE NEGATIVE (Neg); KETONES,URINE 15 mg/dl (Neg); LEUKOCYTE ESTERASE ,URINE NEGATIVE (Neg); NITRITES, URINE NEGATIVE (Neg); OCCULT BLOOD,URINE NEGATIVE (Neg); PROTEIN,URINE TRACE mg/dl (Neg)
[2024-12-25 07:37] LABS: UA COLLECTION TYPE VOIDED
[2024-12-25 07:39] LABS: URINE AMPHETAMINE SCREEN POSITIVE (Neg); URINE BARBITUATE SCREEN NEGATIVE (Neg); URINE BENZODIAZEPINES SCREEN NEGATIVE (Neg); URINE CANNABINOID SCREEN NEGATIVE (Neg); URINE COCAINE SCREEN NEGATIVE (Neg); URINE METHADONE SCREEN NEGATIVE (Neg); URINE OPIATE SCREEN NEGATIVE (Neg); URINE PHENCYCLIDINE SCREEN NEGATIVE (Neg)
[2024-12-25 07:41] LABS: BACTERIA,URINE FEW /HPF (Neg); MUCUS STRANDS MANY /LPF (Neg); RBC,URINE NONE SEEN /HPF (0-2); SQUAMOUS EPITHELIAL CELL,UR FEW /LPF (FEW)
--- NOTE | 2024-12-25 08:00 | ELECTROCARDIOGRAPH REPORT ---
[facility] Test Date: 2024-12-25 Test Time: 00:49:54 Pat Name: CARMELA CARRASCO Department: EMERGENCY ROOM Room: Gender: F Professional Programmer Analyst: ADAN : 1990 Requested By: DAWN COYNE Order Number: [id number] Reading MD: Dr. Camden Solis Measurements Intervals [place] Rate: 114 P: 42 CO: 174 QRS: 108 QRSD: 88 T: 2 QT: 320 QTc: 441 Interpretive Statements Sinus tachycardia Anterior infarct, old Electronically Signed On 12-27-2024 6:35:[address] Camden Solis Please click the below link to view image of tracing.
[2024-12-25 08:37] VITALS: BP 117/85; PULSE 93; RESP 15; TEMP 98; O2SAT 98
[2024-12-25] MEDS ORDERED: BACL10TA PO ×2 (16:51→16:53)
[2024-12-25] MEDS ORDERED: AMPH30TA3 PO (17:00)
== END 2024-12-25 08:14 | disposition home or self-care (01) ==
LOC: EDSEX → MERGE 00:38 → ER 00:38
DX: G47.00 Insomnia, unspecified (principal); Z91.010 Allergy to peanuts; Z79.899 Other long term (current) drug therapy
CPT/HCPCS: 36415; 80048; 80305; 80320; 81001; 85025; 93005; 99285; Q0163

== ENCOUNTER 2024-12-25 13:46 | Emergency (ER) | payer MEDICAID ==
[~2024-12-25] VITALS: Ht 167.6 cm; Wt 61.5 kg
[2024-12-25 15:18] LABS: BILIRUBIN,URINE SMALL (Neg); CLARITY,URINE CLEAR (Clear); GLUCOSE, URINE NEGATIVE (Neg); KETONES,URINE NEGATIVE (Neg); LEUKOCYTE ESTERASE ,URINE NEGATIVE (Neg); NITRITES, URINE NEGATIVE (Neg); OCCULT BLOOD,URINE NEGATIVE (Neg); PROTEIN,URINE TRACE mg/dl (Neg); UROBILINOGEN,URINE 0.2 E.U/dL (0.2-1.0)
[2024-12-25 15:19] LABS: COLOR,URINE DARK YELLOW (Yellow); UA COLLECTION TYPE VOIDED
[2024-12-25 15:26] LABS: BACTERIA,URINE FEW /HPF (Neg); RBC,URINE 0-2 /HPF (0-2); SQUAMOUS EPITHELIAL CELL,UR FEW /LPF (FEW)
[2024-12-25 15:27] LABS: CAL OXALATE CRYSTALS FEW /HPF (NEGATIVE); MUCUS STRANDS FEW /LPF (Neg)
[2024-12-25 15:32] LABS: URINE HCG NEGATIVE (NEG)
[2024-12-25 15:34] LABS: URINE AMPHETAMINE SCREEN POSITIVE (Neg); URINE BARBITUATE SCREEN NEGATIVE (Neg); URINE BENZODIAZEPINES SCREEN NEGATIVE (Neg); URINE CANNABINOID SCREEN NEGATIVE (Neg); URINE COCAINE SCREEN NEGATIVE (Neg); URINE METHADONE SCREEN NEGATIVE (Neg); URINE OPIATE SCREEN NEGATIVE (Neg); URINE PHENCYCLIDINE SCREEN NEGATIVE (Neg)
[2024-12-25 15:39] LABS: BASOPHILS % (AUTO) 0.6 % (0-1); EOSINOPHILS # (AUTO) 0.5 X10'3 (0-0.9); EOSINOPHILS % (AUTO) 6.7 % (0-6); HEMATOCRIT 38.1 % (35.0-45.0); HEMOGLOBIN 13.1 g/dl (12.0-16.0); LYMPHOCYTES # (AUTO) 1.6 X10'3 (1.1-4.8); LYMPHOCYTES % (AUTO) 19.8 % (21-51); MEAN CORPUSCULAR HEMOGLOBIN 29.3 PG (27.0-31.0); MEAN CORPUSCULAR HGB CONC 34.3 g/dL (33.0-36.5); MEAN CORPUSCULAR VOLUME 85.4 FL (78-98); MEAN PLATELET VOLUME 6.5 FL (7.4-10.4); MONOCYTES # (AUTO) 0.8 X10'3 (0-0.9); MONOCYTES % (AUTO) 9.5 % (2-12); NEUTROPHILS # (AUTO) 5.1 X10'3 (1.8-7.7); NEUTROPHILS % (AUTO) 63.4 % (42-75); PLATELET COUNT 350 X10'3 (140-440); RED BLOOD COUNT 4.46 X10'6 (4.20-5.60); RED CELL DISTRIBUTION WIDTH 13.2 % (11.5-14.5)
[2024-12-25 15:50] LABS: ALBUMIN 4.2 G/DL (3.4-5.0); ANION GAP 9 (8-16); BLOOD UREA NITROGEN 13 MG/DL (7-18); CALCIUM 8.9 MG/DL (8.5-10.1); CHLORIDE 102 MMOL/L (99-107); CREATININE 0.93 MG/DL (0.40-0.90); ETHANOL < 10 MG/DL (<10); GLUCOSE 90 MG/DL (70-104); POTASSIUM 3.7 MMOL/L (3.5-5.1); SODIUM 138 MMOL/L (135-145); TOTAL CARBON DIOXIDE 27.2 MMOL/L (24-32); eCRCL 81 ML/MIN; eGFR 70 ML/MIN
[2024-12-25] MEDS ORDERED: BACL10TA PO ×2 (16:51→16:53)
[2024-12-25] MEDS ORDERED: AMPH30TA3 PO (17:00)
[2024-12-25 17:05] LABS: THYROID STIMULATING HORMONE 1.62 ulU/ml (0.34-4.50)
--- NOTE | 2024-12-25 17:50 | Physician Documentation ---
History of Present Illness ~ Chief Complaint: Mental Health Eval Stated Complaint: EVAL Time Seen by MD: 14:25 Primary Medical Doctor: Wendie Carter MD Mode of Arrival: Wheelchair HPI Patient was here last night for insomnia. He is back today feels like he is gravely disabled when I asked why he feels he is gravely disabled he said that previously he was at a psychiatric facility and that is what he was told. He does not have thoughts of self-harm. Medication Reconciliation Allergies: Coded Allergies: peanut (Verified Allergy, Unknown, 11/27/24) Scheduled Amphet Asp/Amphet/D-Amphet XR* (Adderall XR*), 1 CAP PO QAM, (Reported) Dextroamphetamine/Amphetamine (Adderall 30 mg Tablet), 1 TAB PO DAILY, (Reported) Quetiapine Fumarate (Quetiapine Fumarate), 1 TAB PO HS, (Reported) Scheduled PRN Baclofen (Baclofen), 1 TAB PO Q8H PRN for muscle spasms, (Reported) Lorazepam (Ativan), 1 TAB PO DAILY PRN for anxiety, (Reported) Discontinued Medications Amphet Asp/Amphet/D-Amphet (Adderall 15 Mg Tablet), 1 TAB PO BID, (Reported) Discontinued Reason: patient no longer taking Baclofen (Baclofen), 1 TAB PO Q8H Discontinued Reason: wrong med Past Medical History Past Medical History: *PSYCH*, Anxiety Past Surgical History: no surgical history Alcohol Use: Occasionally Drug Use: none Lives with: Family Lives In: Home Occupation: student Physical Exam Vital Signs: Temperature: 97.6, Source: Temporal, Heart Rate: 121, Respiratory Rate: 14, BP: 128/83, Pulse Oximetry: 98, Weight: 61.500 Physical Exam General: Awake and Alert, no acute distress. HEENT: Conjunctiva pink, Sclera clear, Mucus Membranes moist. Neck: Supple without masses and tenderness. Resp: Unlabored. Lungs clear to auscultation bilaterally. Heart: Regular Rate and rhythm, normal S1 and S2 without murmur, rub or gallop. Abdomen: Soft and non tender no organomegaly Extremities: No cyanosis,clubbing or edema. Skin: Warm and Dry. Neuro: GCS 15; no focal deficits Psych: Flat affect not suicidal Progress Results/Orders Results/Orders Orders - TESSA JONES MD Med Rec (12/25/24 15:04) 1799.11 (12/25/24 15:04) Close Observation Level (12/25/24 15:04) Covid19 Binax Poc Result Entry (12/25/24 15:04) Substance Use Navigator (12/25/24 15:04) Regular Diet (12/25/24 Dinner) Store Meds In Pharmacy (Store Meds In Ph (12/25/24 17:50) Completed Orders - TESSA JONES MD Cbc/Diff (12/25/24 15:04) Hcg, Ur Ql (12/25/24 15:04) Drug Screen, Urine (12/25/24 15:04) Ethanol (12/25/24 15:04) TSH (12/25/24 15:04) BMP (12/25/24 15:04) Ua With Microscopic (12/25/24 13:59) Vital Signs 12/25/24 12/25/24 13:47 16:29 Temp 97.6 Pulse 121 Resp 15 14 B/P (MAP) 128/83 Pulse Ox 98 Laboratory Tests Test 12/25/24 02:05 12/25/24 13:54 12/25/24 13:59 12/25/24 15:18 Sodium Level 138 Potassium Level 3.7 Chloride Level 102 Carbon Dioxide Level 27.2 Anion Gap 9 Blood Urea Nitrogen 13 Creatinine 0.93 H Estimated GFR/1.73 m2 70 BUN/Creatinine Ratio 14.0 Glucose Level 90 Calcium Level 8.9 Albumin 4.2 Thyroid Stimulating Hormone (TSH) 1.62 Chemistry Comments Ethyl Alcohol Level < 10 SARS-CoV-2 Antigen (Rapid) Negative Urine Specimen Description Voided Urine Color Dark yellow Urine Clarity Clear Urine pH 6.0 Urine Specific [place] >=1.030 Urine Protein Trace Urine Glucose (UA) Negative Urine Ketones Negative Urine Occult Blood Negative Urine Nitrite Negative Urine Bilirubin Small Urine Urobilinogen 0.2 Urine Leukocyte Esterase Negative Urine RBC 0-2 Urine WBC 5-10 H Urine Squamous Epithelial Cells Few Urine Calcium Oxalate Crystals Few Urine Bacteria Few Urine Mucus Few Volume Urine Centrifuged 10 ml Urine HCG, Qualitative Negative Urine Comment Urine Opiates Screen Negative Urine Methadone Screen Negative Urine Fentanyl Screen Negative Urine Barbiturates Screen Negative Urine Phencyclidine Screen Negative Urine Amphetamines Screen Positive Urine Benzodiazepines Screen Negative Urine Cocaine Screen Negative Urine Cannabinoids Screen Negative Drug Screen Comment White Blood Count 8.0 Red Blood Count 4.46 Hemoglobin 13.1 Hematocrit 38.1 Mean Corpuscular Volume 85.4 Mean Corpuscular Hemoglobin 29.3 Mean Corpuscular Hemoglobin Concent 34.3 Red Cell Distribution Width 13.2 Platelet Count 350 Mean Platelet Volume 6.5 L Neutrophils (%) (Auto) 63.4 Lymphocytes (%) (Auto) 19.8 L Monocytes (%) (Auto) 9.5 Eosinophils (%) (Auto) 6.7 H Basophils (%) (Auto) 0.6 Neutrophils # (Auto) 5.1 Lymphocytes # (Auto) 1.6 Monocytes # (Auto) 0.8 Eosinophils # (Auto) 0.5 Basophils # (Auto) 0.0 CBC Comment Medical Decision Making Findings Patient feels like he is gravely disabled and needs a psychiatric evaluation. He is not suicidal. He was placed on a 1799 hold and medically cleared and signed out to oncoming provider. Departure Disposition: 30 STILL A PATIENT Impression: Primary Impression: Mental disorder Condition: Stable Referrals: NO PRIMARY CARE PROVIDER (PCP) Signature Scribe Signature: no scribe Attestation: no scribe TESSA JONES MD Dec 25, 2024 17:49
[2024-12-25] MEDS ORDERED: LORazepam 1 MG tablet PO PRN (18:10)
[2024-12-25] MEDS: quetiapine 100mg tablet PO SCH (20:09)
[2024-12-25] MEDS: diphenhydrAMINE 25mg capsule PO ONE (20:09)
[2024-12-25] MEDS: baclofen 10mg tablet PO PRN (20:09)
[2024-12-26] MEDS: DEXTROAMPHETAMINE PO SCH (07:39)
[2024-12-26] MEDS: AMPHETAMINE PO SCH (07:39)
[2024-12-26] MEDS: AMPHET PO SCH (07:39)
[2024-12-26] MEDS: AMPHET ASP PO SCH (07:39)
[2024-12-26] MEDS: D AMPHET PO SCH (07:39)
[2024-12-26] MEDS ORDERED: DEXTROAMPHETAMINE PO SCH (08:00)
[2024-12-26] MEDS ORDERED: AMPHETAMINE PO SCH (08:00)
[2024-12-26] MEDS: nicotine 21mg patch - 24 hr TD ONE (10:03)
[2024-12-26 12:04] VITALS: BP 114/90; PULSE 109; RESP 16; TEMP 98.1; O2SAT 99
== END 2024-12-26 11:59 | disposition home or self-care (01) ==
LOC: ER 13:47
DX: F99 Mental disorder, not otherwise specified (principal); Z20.822 Contact with and (suspected) exposure to COVID-19
CPT/HCPCS: 36415; 80048; 80305; 80320; 81001; 81025; 84443; 85025; 87811; 99284; J7030; Q0163